=== PATIENT | male | born 1945 | race Caucasian/White ===

== ENCOUNTER 2018-10-04 17:33 | Inpatient (IN) | payer MEDICARE, BC ==
[2018-10-04] MEDS ORDERED: Sodium Chloride 0.9% 10 ML Syringe FLUSH PRN (17:52)
--- NOTE | 2018-10-04 17:54 | EDM.PDOC ---
ED HPI GENERAL MEDICAL PROBLEM - General Chief Complaint: Respiratory Problem Stated Complaint: SHAKY/COUGH Time Seen by Provider: 10/04/18 17:49 Source of Information: Reports: Patient, RN Notes Reviewed - History of Present Illness INITIAL COMMENTS - FREE TEXT/NARRATIVE: 73-year-old male with onset of cough, sore throat last evening, today and especially this afternoon his developed fever, chills, worsening cough. His cough is nonproductive. He does have some nasal and sinus congestion. He does smoke, has history of coronary artery disease with 3 stents. He has had prior pneumonia. He did not get a flu shot this year. He has had shaking chills this afternoon. He did have a dose of Tylenol about 5 hours ago. He is nauseated, he did vomit just shortly after arrival to ED. - Related Data Allergies Allergy/AdvReac Type Severity Reaction Status Date / Time No Known Allergies Allergy Verified 10/04/18 17:48 Home Meds: Home Meds Finasteride [Proscar] 5 mg PO DAILY 05/04/16 [History] Lisinopril 5 mg PO DAILY 05/04/16 [History] Simvastatin [Zocor] 10 mg PO BEDTIME 05/04/16 [History] Tamsulosin [Flomax] 0.4 mg PO DAILY 05/04/16 [History] Aspirin [Nando Chewable Aspirin] 81 mg PO DAILY 01/14/17 [History] Metoprolol Succinate 25 mg PO BID 03/24/17 [History] Past Medical History HEENT History: Reports: Impaired Vision Cardiovascular History: Reports: CAD, High Cholesterol, Hypertension Gastrointestinal History: Reports: Colon Polyp, GI Bleed, Other (See Below) Other Gastrointestinal History: Diverticulitis Genitourinary History: Reports: BPH. Denies: Chronic Renal Insuffiency Oncologic (Cancer) History: Reports: None - Past Surgical History Cardiovascular Surgical History: Reports: Coronary Artery Stent Social & Family History - Family History Family Medical History: Noncontributory - Caffeine Use Caffeine Use: Reports: Coffee Caffeine Use Comment: 3 cups avg per day ED ROS GENERAL - Review of Systems Review Of Systems: See Below Constitutional: Reports: Fever, Chills HEENT: Reports: Rhinitis, Throat Pain (Mild) Respiratory: Reports: Shortness of Breath (Mild mild), Cough, Sputum (Severe mostly nonproductive). Denies: Hemoptysis Cardiovascular: Reports: Chest Pain (With coughing) GI/Abdominal: Reports: Nausea, Vomiting. Denies: Abdominal Pain Musculoskeletal: Reports: Other (Generalized achiness). Denies: Shoulder Pain, Arm Pain Skin: Denies: Rash Neurological: Reports: Headache (Mild), Weakness (Generalized), Gait Disturbance (Unsteady on feet) ED EXAM, GENERAL - Physical Exam Exam: See Below General Appearance: Alert, Mild Distress Eye Exam: Bilateral Eye: PERRL Throat/Mouth: Normal Inspection Head: Atraumatic Neck: Supple. No: Lymphadenopathy (L), Lymphadenopathy (R) Respiratory/Chest: Respiratory Distress (Mild tachypnea). No: Rhonchi, Wheezing Cardiovascular: Tachycardia GI/Abdominal: Soft, Tender (Mild diffuse) Extremities: No: Normal Range of Motion, Leg Pain Neurological: Alert, Oriented, No Motor/Sensory Deficits Skin Exam: Warm, Dry, Normal Color EKG INTERPRETATION EKG Date: 10/04/18 Rhythm: Other (Sinus tachycardia) Rate (Beats/Min): 113 [place]: Normal P-Wave: Present QRS: Other (LAFB) ST-T: Other (Diffuse ST changes) Course - Vital Signs Last Recorded V/S: Last Vital Signs Temp 100.3 F 10/04/18 18:12 Pulse 122 H 10/04/18 17:44 Resp 20 10/04/18 17:44 BP 159/88 H 10/04/18 17:44 Pulse Ox 94 L 10/04/18 17:44 - Orders/Labs/Meds Orders: Active Orders 24 hr Category Date Time Status Peripheral IV Care [RC] . DIRECTED Care 10/04/18 17:52 Active Chest 1V Frontal [CR] Stat Exams 10/04/18 17:51 Taken CULTURE BLOOD [BC] Stat Lab 10/04/18 18:02 Received CULTURE BLOOD [BC] Stat Lab 10/04/18 18:10 Received Sodium Chloride 0.9% [Normal Saline] 1,000 ml Med 10/04/18 18:00 Active IV ONETIME Sodium Chloride 0.9% [Saline Flush] Med 10/04/18 17:52 Active 10 ml FLUSH ASDIRECTED PRN Peripheral IV Insertion Adult [OM.PC] Stat Oth 10/04/18 17:52 Ordered Medication Orders Sodium Chloride (Normal Saline) 1,000 mls @ 999 mls/hr IV ONETIME MAIKEL Last Admin: 10/04/18 18:11 Dose: 999 mls/hr Sodium Chloride (Saline Flush) 10 ml FLUSH ASDIRECTED PRN PRN Reason: Keep Vein Open Last Admin: 10/04/18 18:13 Dose: 10 ml Labs: Laboratory Tests 10/04/18 10/04/18 10/04/18 Range/Units 18:02 18:02 18:10 WBC 14.36 H (4.23-9.07) K/mm3 RBC 4.87 (4.63-6.08) M/mm3 Hgb 14.4 (13.7-17.5) gm/L Hct 43.6 (40.1-51.0) % MCV 89.5 (79.0-92.2) fl MCH 29.6 (25.7-32.2) pg MCHC 33.0 (32.2-35.5) g/dl RDW Std Deviation 43.4 (35.1-43.9) fL Plt Count 193 (163-337) K/mm3 MPV 9.5 (9.4-12.3) fl Neut % (Auto) 87.7 H (34.0-67.9) % Lymph % (Auto) 6.2 L (21.8-53.1) % [place] % (Auto) 5.3 (5.3-12.2) % Eos % (Auto) 0.4 L (0.8-7.0) Baso % (Auto) 0.2 (0.1-1.2) % Neut # (Auto) 12.59 H (1.78-5.38) K/mm3 Lymph # (Auto) 0.89 L (1.32-3.57) K/mm3 [place] # (Auto) 0.76 (0.30-0.82) K/mm3 Eos # (Auto) 0.06 (0.04-0.54) K/mm3 Baso # (Auto) 0.03 (0.01-0.08) K/mm3 Manual Slide Review Abnormal smear Sodium 136 (136-145) mEq/L Potassium 4.2 (3.5-5.1) mEq/L Chloride 102 (98-107) mEq/L Carbon Dioxide 24 (21-32) mEq/L Anion Gap 14.2 (5-15) BUN 15 (7-18) mg/dL Creatinine 0.9 (0.7-1.3) mg/dL Est Cr Clr Drug Dosing 76.69 mL/min Estimated GFR (MDRD) > 60 (>60) mL/min BUN/Creatinine Ratio 16.7 (14-18) Glucose 102 (83-115) mg/dL Lactic Acid 1.7 (0.4-2.0) mmol/L Calcium 8.9 (8.5-10.1) mg/dL Total Bilirubin 0.6 (0.2-1.0) mg/dL AST 25 (15-37) U/L ALT 23 (16-63) U/L Alkaline Phosphatase 88 (46-116) U/L C-Reactive Protein 1.5 H* (<1.0) mg/dL Total Protein 7.6 (6.4-8.2) g/dl Albumin 3.9 (3.4-5.0) g/dl Globulin 3.7 gm/dL Albumin/Globulin Ratio 1.1 (1-2) Mycoplasma pneumon IgM Negative (NEGATIVE) Meds: Medications Generic Name Dose Route Start Last Admin Trade Name Freq PRN Reason Stop Dose Admin Sodium Chloride 1,000 mls @ 999 mls/hr 10/04/18 18:00 10/04/18 18:11 Normal Saline IV 999 mls/hr ONETIME MAIKEL Administration Sodium Chloride 10 ml 10/04/18 17:52 10/04/18 18:13 Saline Flush FLUSH 10 ml ASDIRECTED PRN Administration Keep Vein Open Discontinued Medications Generic Name Dose Route Start Last Admin Trade Name Freq PRN Reason Stop Dose Admin Acetaminophen 975 mg 10/04/18 18:05 10/04/18 18:12 Tylenol PO 10/04/18 18:06 975 mg NOW ONE Administration Ceftriaxone Sodium Confirm 10/04/18 18:46 10/04/18 18:52 Rocephin Administered 10/04/18 18:47 Not Given Dose 2 gm .ROUTE .STK-MED ONE Ceftriaxone Sodium Confirm 10/04/18 18:48 10/04/18 18:52 Rocephin Administered 10/04/18 18:49 Not Given Dose 2 gm IV .STK-MED ONE Ceftriaxone Sodium 2 gm/ 100 mls @ 200 mls/hr 10/04/18 18:23 10/04/18 18:52 Sodium Chloride IV 10/04/18 18:52 200 mls/hr ONETIME ONE Administration Sodium Chloride Confirm 10/04/18 18:48 10/04/18 18:52 Normal Saline Administered 10/04/18 18:49 Not Given Dose 100 mls @ as directed .ROUTE .STK-MED ONE Ondansetron HCl 4 mg 10/04/18 18:05 10/04/18 18:12 Zofran IVPUSH 10/04/18 18:06 4 mg ONETIME ONE Administration - Re-Assessments/Exams Free Text/Narrative Re-Assessment/Exam: 10/04/18 19:06. Chest x-ray shows what looks like a small infiltrate right base. White blood count 14,300, 87 segs, only 6 lymphocytes. Influenza screen is negative. He did meet sepsis alert criteria. Blood cultures 2 were drawn. Lactic acid is 1.7. He has been given 1 L of normal saline over the past hour. Rocephin 2 g IV is running at this time. He will be admitted for further treatment. Departure - Departure Time of Disposition: 19:10 Disposition: Admitted As Inpatient 65 Condition: Serious Clinical Impression: Pneumonia Qualifiers: Pneumonia type: due to unspecified organism Laterality: right Lung location: lower lobe of lung Qualified Code(s): J18.1 - Lobar pneumonia, unspecified organism - Discharge Information Referrals: Christopher Francois MD [Primary Care Provider] - Forms: ED Department Discharge ED Communication - Discussed Case With (1) Discussed Case With (1): Admitting Provider (Dr Dorantes, decision to admit at about 19:10.) - My Orders Last 24 Hours: My Active Orders 10/04/18 17:51 Chest 1V Frontal [CR] Stat 10/04/18 17:52 Peripheral IV Care [RC] . DIRECTED Sodium Chloride 0.9% [Saline Flush] 10 ml FLUSH ASDIRECTED PRN Peripheral IV Insertion Adult [OM.PC] Stat 10/04/18 18:00 Sodium Chloride 0.9% [Normal Saline] 1,000 ml IV ONETIME 10/04/18 18:02 CULTURE BLOOD [BC] Stat 10/04/18 18:10 CULTURE BLOOD [BC] Stat - Assessment/Plan Last 24 Hours: My Active Orders 10/04/18 17:51 Chest 1V Frontal [CR] Stat 10/04/18 17:52 Peripheral IV Care [RC] . DIRECTED Sodium Chloride 0.9% [Saline Flush] 10 ml FLUSH ASDIRECTED PRN Peripheral IV Insertion Adult [OM.PC] Stat 10/04/18 18:00 Sodium Chloride 0.9% [Normal Saline] 1,000 ml IV ONETIME 10/04/18 18:02 CULTURE BLOOD [BC] Stat 10/04/18 18:10 CULTURE BLOOD [BC] Stat
[2018-10-04] MEDS ORDERED: Sodium Chloride 0.9% 1,000 ML IV SCH (18:00)
[2018-10-04] MEDS ORDERED: Ondansetron 4 MG/2 ML SDV IVPUSH ONE (18:05)
[2018-10-04] MEDS ORDERED: Acetaminophen 325 MG Tab PO ONE (18:05)
[2018-10-04] MEDS ORDERED: cefTRIAXone 2 GM in Sodium Chloride 0.9% 100 ML IV ONE (18:23)
[2018-10-04] MEDS ORDERED: cefTRIAXone 2 GM Vial ONE (18:46)
[2018-10-04] MEDS ORDERED: Sodium Chloride 0.9% 100 ML ONE (18:48)
[2018-10-04] MEDS ORDERED: cefTRIAXone 2 GM AdvVial IV ONE (18:48)
[2018-10-04] MEDS ORDERED: Azithromycin 500 MG in Sodium Chloride 0.9% 250 ML IV ONE (22:32)
[2018-10-04] MEDS ORDERED: Acetaminophen 325 MG Tab PO PRN (22:35)
[2018-10-04] MEDS ORDERED: Temazepam 7.5 MG Cap PO PRN (22:41)
[2018-10-04] MEDS ORDERED: Albuterol 0.083% 2.5 MG/3 ML Neb Soln NEB PRN (22:52)
[2018-10-04] MEDS ORDERED: Albuterol/Ipratropium 3.0-0.5 MG/3 ML Neb Soln NEB SCH (23:00)
[2018-10-04] MEDS: Sodium Chloride 0.9% 1,000 ML IV SCH (23:45)
[2018-10-05] MEDS: Albuterol/Ipratropium 3.0-0.5 MG/3 ML Neb Soln NEB SCH ×4 (06:33→20:40)
[2018-10-05] MEDS: Enoxaparin 40 MG/0.4 ML Syringe SUBCUT SCH (08:52)
[2018-10-05] MEDS: Nicotine 21 MG/24 Hr Patch TRDERM SCH (08:52)
--- NOTE | 2018-10-05 08:54 | CR ---
Chest: 2 views of the chest were obtained. Comparison: Prior portable chest x-ray of 10/04/18. Lungs are hyperinflated compatible with emphysematous change. Surgical clips are seen from prior cholecystectomy. Heart size within normal limits. Tortuous thoracic aorta is noted. Lung markings are increased which appear slightly increased from previous exam. Lungs otherwise are clear. Degenerative endplate spurring is noted within the spine. Impression: 1. Emphysematous change. 2. Increased lung markings which are more prominent than on prior study. Uncertain how much of this represents fibrosis versus worsening bronchitis. 3. Other incidental findings. Diagnostic code #3
[2018-10-05] MEDS ORDERED: cefTRIAXone 2 GM in Sodium Chloride 0.9% 100 ML IV ONE (09:00)
--- NOTE | 2018-10-05 09:25 | PCM.HP ---
H&P History of Present Illness - General Date of Service: 10/05/18 Admit Problem/Dx: Admission Diagnosis/Problem Admission Diagnosis/Problem Pneumonia Source of Information: Patient, Family, Provider - History of Present Illness Initial Comments - Free Text/Narative: 73 year old male with history of tobacco dependence presents after a course of doxycycline/prednisone, patient states that he completed the course. The patient reports fever, chills and increasingly has had a cough. He however denies sputum production. He reports nasal congestion . The patient declined the flu vaccine. The patient is a full code. Onset of Symptoms: Reports: Gradual Symptom Onset Date: 10/02/18 Duration of Symptoms: Reports: Day(s):, Getting Worse Location: Reports: Chest, Generalized Quality: Reports: Same as Previous Episode Severity: Moderate Improves with: Reports: Medication Context: Reports: Sick Contact (unknown) Associated Symptoms: Reports: Cough, Malaise, Weakness - Related Data Allergies/Adverse Reactions: Allergies Allergy/AdvReac Type Severity Reaction Status Date / Time orange juice Allergy Itching Verified 10/05/18 09:07 Home Medications: Home Meds Finasteride [Proscar] 5 mg PO DAILY 05/04/16 [History] Lisinopril 5 mg PO DAILY 05/04/16 [History] Tamsulosin [Flomax] 0.4 mg PO DAILY 05/04/16 [History] Aspirin [Nando Chewable Aspirin] 81 mg PO DAILY 01/14/17 [History] ALPRAZolam [Xanax] 0.25 mg PO DAILY PRN 10/04/18 [History] Benzonatate [Tessalon Perle] 200 mg PO TID 10/04/18 [History] Clopidogrel [Plavix] 75 mg PO DAILY 10/04/18 [History] Isosorbide Mononitrate [Imdur] 30 mg PO DAILY 10/04/18 [History] Metoprolol Tartrate 25 mg PO BID 10/04/18 [History] Rosuvastatin [Crestor] 20 mg PO DAILY 10/04/18 [History] amLODIPine Besylate [Norvasc] 2.5 mg PO DAILY 10/04/18 [History] Past Medical History HEENT History: Reports: Impaired Vision, Other (See Below) Other HEENT History: we3ars glasses Cardiovascular History: Reports: CAD, High Cholesterol, Hypertension Gastrointestinal History: Reports: Colon Polyp, GI Bleed, Other (See Below) Other Gastrointestinal History: Diverticulitis Genitourinary History: Reports: BPH Oncologic (Cancer) History: Reports: None - Past Surgical History HEENT Surgical History: Reports: None Cardiovascular Surgical History: Reports: Coronary Artery Stent GI Surgical History: Reports: None Male Surgical History: Reports: None Social & Family History - Family History Family Medical History: Noncontributory - Tobacco Use Smoking Status *Q: Current Every Day Smoker Years of Tobacco use: 50 Packs/Tins Daily: 1 Used Tobacco, but Quit: No Second Hand Smoke Exposure: No - Caffeine Use Caffeine Use: Reports: Coffee Other Caffeine Use: 5 cups of coffee everyday. Caffeine Use Comment: 3 cups avg per day - Recreational Drug Use Recreational Drug Use: No H&P Review of Systems - Review of Systems: Review Of Systems: See Below General: Reports: Malaise, Weakness HEENT: Reports: Sore Throat Pulmonary: Reports: Shortness of Breath, Wheezing, Cough Cardiovascular: Reports: No Symptoms Gastrointestinal: Reports: No Symptoms Genitourinary: Reports: No Symptoms Musculoskeletal: Reports: No Symptoms Skin: Reports: No Symptoms Psychiatric: Reports: No Symptoms Neurological: Reports: No Symptoms Hematologic/Lymphatic: Reports: No Symptoms Immunologic: Reports: No Symptoms Exam - Exam Exam: See Below - Vital Signs Vital Signs: Last Vital Signs Temp 36.6 C 10/05/18 04:50 Pulse 54 L 10/05/18 04:50 Resp 14 10/05/18 04:50 BP 137/71 10/05/18 04:50 Pulse Ox 98 10/05/18 06:36 Weight: 76.249 kg - Exam Quality Assessment: Supplemental Oxygen (1l/m) General: Alert, Oriented, Cooperative HEENT: Conjunctiva Clear, EOMI, Nares Patent, Normal Nasal Septum, Pupils Equal , Pupils Reactive, PERRLA Neck: Trachea Midline Lungs: Normal Respiratory Effort, Decreased Breath Sounds, Wheezing Cardiovascular: Regular Rate, Regular Rhythm GI/Abdominal Exam: Normal Bowel Sounds, Soft, Non-Tender, No Organomegaly, No Distention (Male) Exam: Deferred Rectal (Males) Exam: Deferred Back Exam: Normal Inspection Extremities: Normal Inspection, Normal Range of Motion, Non-Tender, Normal Capillary Refill Skin: Warm Neurological: Cranial Nerves Intact, Normal Gait, Normal Speech Neuro Extensive - Mental Status: Alert, Oriented x3, Normal Mood/Affect, Normal Cognition, Memory Intact Neuro Extensive - Motor, Sensory, Reflexes: CN II-XII Intact Psychiatric: Alert, Normal Affect, Normal Mood - Patient Data Lab Results Last 24 hrs: Laboratory Results - last 24 hr 10/04/18 10/04/18 10/04/18 Range/Units 18:02 18:02 18:10 WBC 14.36 H (4.23-9.07) K/mm3 RBC 4.87 (4.63-6.08) M/mm3 Hgb 14.4 (13.7-17.5) gm/L Hct 43.6 (40.1-51.0) % MCV 89.5 (79.0-92.2) fl MCH 29.6 (25.7-32.2) pg MCHC 33.0 (32.2-35.5) g/dl RDW Std Deviation 43.4 (35.1-43.9) fL Plt Count 193 (163-337) K/mm3 MPV 9.5 (9.4-12.3) fl Neut % (Auto) 87.7 H (34.0-67.9) % Lymph % (Auto) 6.2 L (21.8-53.1) % [place] % (Auto) 5.3 (5.3-12.2) % Eos % (Auto) 0.4 L (0.8-7.0) Baso % (Auto) 0.2 (0.1-1.2) % Neut # (Auto) 12.59 H (1.78-5.38) K/mm3 Lymph # (Auto) 0.89 L (1.32-3.57) K/mm3 [place] # (Auto) 0.76 (0.30-0.82) K/mm3 Eos # (Auto) 0.06 (0.04-0.54) K/mm3 Baso # (Auto) 0.03 (0.01-0.08) K/mm3 Neutrophils % (Manual) (40-60) % Band Neutrophils % (0-10) % Lymphocytes % (Manual) (20-40) % Atypical Lymphs % % Monocytes % (Manual) (2-10) % Eosinophils % (Manual) (0.8-7.0) % Basophils % (Manual) (0.2-1.2) Manual Slide Review Abnormal smear Platelet Estimate RBC Morph Comment Sodium 136 (136-145) mEq/L Potassium 4.2 (3.5-5.1) mEq/L Chloride 102 (98-107) mEq/L Carbon Dioxide 24 (21-32) mEq/L Anion Gap 14.2 (5-15) BUN 15 (7-18) mg/dL Creatinine 0.9 (0.7-1.3) mg/dL Est Cr Clr Drug Dosing 76.69 mL/min Estimated GFR (MDRD) > 60 (>60) mL/min BUN/Creatinine Ratio 16.7 (14-18) Glucose 102 (83-115) mg/dL Lactic Acid 1.7 (0.4-2.0) mmol/L Calcium 8.9 (8.5-10.1) mg/dL Magnesium (1.8-2.4) mg/dl Total Bilirubin 0.6 (0.2-1.0) mg/dL AST 25 (15-37) U/L ALT 23 (16-63) U/L Alkaline Phosphatase 88 (46-116) U/L C-Reactive Protein 1.5 H* (<1.0) mg/dL Total Protein 7.6 (6.4-8.2) g/dl Albumin 3.9 (3.4-5.0) g/dl Globulin 3.7 gm/dL Albumin/Globulin Ratio 1.1 (1-2) Mycoplasma pneumon IgM Negative (NEGATIVE) 10/05/18 10/05/18 10/05/18 Range/Units 05:11 05:11 05:11 WBC 14.73 H (4.23-9.07) K/mm3 RBC 4.34 L (4.63-6.08) M/mm3 Hgb 12.6 L (13.7-17.5) gm/L Hct 39.3 L (40.1-51.0) % MCV 90.6 (79.0-92.2) fl MCH 29.0 (25.7-32.2) pg MCHC 32.1 L (32.2-35.5) g/dl RDW Std Deviation 44.8 H (35.1-43.9) fL Plt Count 170 (163-337) K/mm3 MPV 9.7 (9.4-12.3) fl Neut % (Auto) (34.0-67.9) % Lymph % (Auto) (21.8-53.1) % [place] % (Auto) (5.3-12.2) % Eos % (Auto) (0.8-7.0) Baso % (Auto) (0.1-1.2) % Neut # (Auto) (1.78-5.38) K/mm3 Lymph # (Auto) (1.32-3.57) K/mm3 [place] # (Auto) (0.30-0.82) K/mm3 Eos # (Auto) (0.04-0.54) K/mm3 Baso # (Auto) (0.01-0.08) K/mm3 Neutrophils % (Manual) 78 H (40-60) % Band Neutrophils % 6 (0-10) % Lymphocytes % (Manual) 12 L (20-40) % Atypical Lymphs % 0 % Monocytes % (Manual) 4 (2-10) % Eosinophils % (Manual) 0 L (0.8-7.0) % Basophils % (Manual) 0 L (0.2-1.2) Manual Slide Review Platelet Estimate Adequate RBC Morph Comment Normal Sodium 140 (136-145) mEq/L Potassium 4.4 (3.5-5.1) mEq/L Chloride 105 (98-107) mEq/L Carbon Dioxide 27 (21-32) mEq/L Anion Gap 12.4 (5-15) BUN 15 (7-18) mg/dL Creatinine 1.0 (0.7-1.3) mg/dL Est Cr Clr Drug Dosing 69.03 mL/min Estimated GFR (MDRD) > 60 (>60) mL/min BUN/Creatinine Ratio 15.0 (14-18) Glucose 94 (83-115) mg/dL Lactic Acid 0.9 (0.4-2.0) mmol/L Calcium 8.3 L (8.5-10.1) mg/dL Magnesium 2.0 (1.8-2.4) mg/dl Total Bilirubin (0.2-1.0) mg/dL AST (15-37) U/L ALT (16-63) U/L Alkaline Phosphatase (46-116) U/L C-Reactive Protein 4.7 H* (<1.0) mg/dL Total Protein (6.4-8.2) g/dl Albumin (3.4-5.0) g/dl Globulin gm/dL Albumin/Globulin Ratio (1-2) Mycoplasma pneumon IgM (NEGATIVE) Result Diagrams: 10/05/18 05:11 10/05/18 05:11 Romaine Results Last 24 hrs: Microbiology 10/04/18 18:05 Influenza Type A Antigen Screen - Final Nasopharyngeal Swab NEGATIVE INFLUENZA A VIRUS AG Influenza Type B Antigen Screen - Final NEGATIVE INFLUENZA B VIRUS AG - Problem List (1) CAD (coronary artery disease) SNOMED Code(s): 51204615 ICD Code: I25.10 - ATHSCL HEART DISEASE OF [place] CORONARY ARTERY W/O ANG PCTRS Status: Acute Current Visit: Yes (2) Hyperlipidemia SNOMED Code(s): 28304530 ICD Code: E78.5 - HYPERLIPIDEMIA, UNSPECIFIED Status: Acute Current Visit : Yes (3) Hypertension SNOMED Code(s): 23620098 ICD Code: I10 - ESSENTIAL (PRIMARY) HYPERTENSION Status: Acute Current Visit: Yes (4) Chronic kidney disease SNOMED Code(s): 771437256 ICD Code: N18.9 - CHRONIC KIDNEY DISEASE, UNSPECIFIED Status: Acute Current Visit: Yes (5) Emphysema lung SNOMED Code(s): 77214024 ICD Code: J43.9 - EMPHYSEMA, UNSPECIFIED Status: Acute Current Visit: Yes (6) Pneumonia SNOMED Code(s): 799510619 ICD Code: J18.9 - PNEUMONIA, UNSPECIFIED ORGANISM Status: Acute Current Visit: Yes Qualifiers: Pneumonia type: due to unspecified organism Laterality: right Lung location: lower lobe of lung Qualified Code(s): J18.1 - Lobar pneumonia, unspecified organism Problem List Initiated/Reviewed/Updated: Yes Orders Last 24hrs: Active Orders 24 hr Category Date Time Status Patient Status [ADT] Routine ADT 10/04/18 20:41 Active Oxygen Therapy Adult [Oxygen Therapy] [RC] ASDIRECTED Care 10/04/18 22:49 Active Peripheral IV Care [RC] . DIRECTED Care 10/04/18 17:52 Active RT Aerosol Therapy [RC] ASDIRECTED Care 10/04/18 22:52 Active RT Incentive Spirometry [RC] Q2HWA Care 10/05/18 06:39 Active Up ad Jen [RC] ASDIRECTED Care 10/04/18 22:46 Active Heart Healthy Diet [DIET] Diet 10/05/18 Breakfast Active Chest 1V Frontal [CR] Stat Exams 10/04/18 17:51 Taken CULTURE BLOOD [BC] Stat Lab 10/04/18 18:02 Received CULTURE BLOOD [BC] Stat Lab 10/04/18 18:10 Received Acetaminophen [Tylenol] Med 10/04/18 22:35 Active 650 mg PO Q6H PRN Albuterol [Proventil Neb Soln] Med 10/04/18 22:52 Active 2.5 mg NEB Q4HRRT PRN Albuterol/Ipratropium [DuoNeb 3.0-0.5 MG/3 ML] Med 10/05/18 06:00 Active 3 ml NEB QIDRT Enoxaparin [Lovenox] Med 10/05/18 09:00 Active 40 mg SUBCUT DAILY Nicotine [Habitrol] Med 10/05/18 09:00 Active 21 mg TRDERM DAILY Sodium Chloride 0.9% [Normal Saline] 1,000 ml Med 10/04/18 22:45 Active IV ASDIRECTED Sodium Chloride 0.9% [Normal Saline] 1,000 ml Med 10/04/18 18:00 Active IV ONETIME Sodium Chloride 0.9% [Saline Flush] Med 10/04/18 17:52 Active 10 ml FLUSH ASDIRECTED PRN Temazepam [Restoril] Med 10/04/18 22:41 Active 7.5 mg PO BEDTIME PRN cefTRIAXone [Rocephin] 2 gm Med 10/05/18 09:00 Active Sodium Chloride 0.9% [Normal Saline] 100 ml IV Q24H Peripheral IV Insertion Adult [OM.PC] Stat Oth 10/04/18 17:52 Ordered Code Status [Resuscitation Status] Routine Resus Stat 10/04/18 22:30 Ordered Medication Orders Acetaminophen (Tylenol) 650 mg PO Q6H PRN PRN Reason: Pain/Fever Albuterol (Proventil Neb Soln) 2.5 mg NEB Q4HRRT PRN PRN Reason: Shortness of Breath Albuterol/Ipratropium (Duoneb 3.0-0.5 Mg/3 Ml) 3 ml NEB QIDRT MAIKEL Last Admin: 10/05/18 09:10 Dose: 3 ml Admin: 10/05/18 06:33 Dose: 3 ml Enoxaparin Sodium (Lovenox) 40 mg SUBCUT DAILY ON LICENSE OF [facility] Last Admin: 10/05/18 08:52 Dose: 40 mg Sodium Chloride (Normal Saline) 1,000 mls @ 999 mls/hr IV ONETIME ON LICENSE OF [facility] Last Admin: 10/04/18 18:11 Dose: 999 mls/hr Ceftriaxone Sodium 2 gm/ (Sodium Chloride) 100 mls @ 200 mls/hr IV Q24H ONE Stop: 10/05/18 09:29 Last Admin: 10/05/18 08:51 Dose: 200 mls/hr Sodium Chloride (Normal Saline) 1,000 mls @ 100 mls/hr IV ASDIRECTED MAIKEL Last Admin: 10/04/18 23:45 Dose: 100 mls/hr Nicotine (Habitrol) 21 mg TRDERM DAILY ON LICENSE OF [facility] Last Admin: 10/05/18 08:52 Dose: 21 mg Sodium Chloride (Saline Flush) 10 ml FLUSH ASDIRECTED PRN PRN Reason: Keep Vein Open Last Admin: 10/04/18 18:13 Dose: 10 ml Temazepam (Restoril) 7.5 mg PO BEDTIME PRN PRN Reason: Sleep Assessment/Plan Comment:: Impression: Outpatient ATB, doxycycline with prednisone failed therapy Active tobacco use Emphysema, query bronchitis cf PNA Hypoxemia Chronic BPH CAD S/P PCI HTN HLD Plan: IVF Zithromax/Rocephin Solumedrol O2 1-2 l/m as needed Droplet isolation Home meds Nicotine replacement/tobacco cessation Daily labs PT/OT/RT/CM DVT/GI prophylaxis
[2018-10-05] MEDS: Sodium Chloride 0.9% 1,000 ML IV SCH (09:31)
[2018-10-05] MEDS ORDERED: ALPRAZolam 0.25 MG Tab PO PRN (10:20)
[2018-10-05] MEDS: methylPREDNISolone Sodium Succinate 125 MG/2 ML SDV IVPUSH SCH ×2 (11:29→18:02)
[2018-10-05] MEDS ORDERED: diphenhydrAMINE 50 MG/ML SDV IVPUSH ONE (11:39)
--- NOTE | 2018-10-05 13:07 | CR ---
Chest: Portable view of the chest was obtained. Comparison: Prior chest x-ray of 06/09/11. Heart size is normal. Tortuous thoracic aorta is seen. Lungs are clear. Previous resection of both clavicles are noted. Impression: 1. Nothing acute is seen on portable chest x-ray. Diagnostic code #1
[2018-10-05] MEDS: Azithromycin 500 MG in Sodium Chloride 0.9% 250 ML IV SCH (16:49)
[2018-10-05] MEDS: Benzonatate 100 MG Cap PO SCH ×2 (16:49→21:34)
[2018-10-05] MEDS: Metoprolol Tartrate 25 MG Tab PO SCH (21:34)
[2018-10-06] MEDS: methylPREDNISolone Sodium Succinate 125 MG/2 ML SDV IVPUSH SCH ×2 (04:53→11:32)
[2018-10-06] MEDS: Sodium Chloride 0.9% 1,000 ML IV SCH ×2 (04:59→15:36)
[2018-10-06] MEDS: Albuterol/Ipratropium 3.0-0.5 MG/3 ML Neb Soln NEB SCH (06:15)
[2018-10-06] MEDS ORDERED: Metoprolol Tartrate 5 MG/5 ML SDV ONE (06:39)
[2018-10-06] MEDS ORDERED: Metoprolol Tartrate 5 MG/5 ML SDV IVPUSH ONE (06:40)
[2018-10-06] MEDS ORDERED: Metoprolol Tartrate 5 MG/5 ML SDV IVPUSH PRN (06:42)
[2018-10-06] MEDS: amLODIPine 2.5 MG Tab PO SCH (08:50)
[2018-10-06] MEDS: Rosuvastatin 10 MG Tab PO SCH (08:50)
[2018-10-06] MEDS: Isosorbide Mononitrate 30 MG Tab.ER PO SCH (08:50)
[2018-10-06] MEDS: Metoprolol Tartrate 25 MG Tab PO SCH ×2 (08:51→21:10)
[2018-10-06] MEDS: Clopidogrel 75 MG Tab PO SCH (08:51)
[2018-10-06] MEDS: Finasteride 5 MG Tab PO SCH (08:51)
[2018-10-06] MEDS: Tamsulosin 0.4 MG Cap.ER PO SCH (08:51)
[2018-10-06] MEDS: Nicotine 21 MG/24 Hr Patch TRDERM SCH (08:51)
[2018-10-06] MEDS: Benzonatate 100 MG Cap PO SCH ×3 (08:51→21:11)
[2018-10-06] MEDS: Aspirin 81 MG Tab.EC PO SCH (08:51)
[2018-10-06] MEDS: cefTRIAXone 2 GM in Sodium Chloride 0.9% 100 ML IV SCH (08:52)
[2018-10-06] MEDS: Enoxaparin 40 MG/0.4 ML Syringe SUBCUT SCH (08:53)
[2018-10-06] MEDS: hydrALAZINE 20 MG/ML SDV IVPUSH PRN (09:44)
[2018-10-06] MEDS ORDERED: Levalbuterol HCl 1.25 MG/3 ML Neb NEB SCH (10:00)
[2018-10-06] MEDS: Azithromycin 500 MG in Sodium Chloride 0.9% 250 ML IV SCH (15:30)
[2018-10-06] MEDS ORDERED: Levalbuterol HCl 1.25 MG/3 ML Neb NEB PRN (15:50)
--- NOTE | 2018-10-06 17:50 | PCM.PN ---
- General Info Date of Service: 10/06/18 Subjective Update: Patient complained of CP after NEBs, will DC; ACS work up with CAD/PCI history. Functional Status: Reports: Pain Controlled, Tolerating Diet, Ambulating, Urinating - Review of Systems General: Reports: No Symptoms HEENT: Reports: No Symptoms Pulmonary: Reports: No Symptoms Cardiovascular: Reports: Chest Pain Gastrointestinal: Reports: No Symptoms Genitourinary: Reports: No Symptoms Musculoskeletal: Reports: No Symptoms Skin: Reports: No Symptoms Neurological: Reports: No Symptoms Psychiatric: Reports: No Symptoms - Patient Data Vitals - Most Recent: Last Vital Signs Temp 36.8 C 10/06/18 16:00 Pulse 73 10/06/18 16:00 Resp 16 10/06/18 16:00 BP 131/82 10/06/18 16:00 Pulse Ox 94 L 10/06/18 16:00 Weight - Most Recent: 78.063 kg I&O - Last 24 Hours: Intake & Output 10/06/18 10/06/18 10/06/18 06:59 14:59 22:59 Intake Total 2192 360 Output Total 1650 Balance 542 360 Lab Results Last 24 Hours: Laboratory Results - last 24 hr 10/06/18 10/06/18 10/06/18 Range/Units 06:15 06:35 06:35 WBC 12.55 H (4.23-9.07) K/mm3 RBC 4.48 L (4.63-6.08) M/mm3 Hgb 13.1 L (13.7-17.5) gm/L Hct 40.1 (40.1-51.0) % MCV 89.5 (79.0-92.2) fl MCH 29.2 (25.7-32.2) pg MCHC 32.7 (32.2-35.5) g/dl RDW Std Deviation 43.7 (35.1-43.9) fL Plt Count 183 (163-337) K/mm3 MPV 9.7 (9.4-12.3) fl Neut % (Auto) 92.6 H (34.0-67.9) % Lymph % (Auto) 5.9 L (21.8-53.1) % [place] % (Auto) 1.4 L (5.3-12.2) % Eos % (Auto) 0 L (0.8-7.0) Baso % (Auto) 0.0 L (0.1-1.2) % Neut # (Auto) 11.62 H (1.78-5.38) K/mm3 Lymph # (Auto) 0.74 L (1.32-3.57) K/mm3 [place] # (Auto) 0.18 L (0.30-0.82) K/mm3 Eos # (Auto) 0.00 L (0.04-0.54) K/mm3 Baso # (Auto) 0.00 L (0.01-0.08) K/mm3 Manual Slide Review Normal smear Sodium 140 (136-145) mEq/L Potassium 3.7 (3.5-5.1) mEq/L Chloride 105 (98-107) mEq/L Carbon Dioxide 23 (21-32) mEq/L Anion Gap 15.7 H (5-15) BUN 13 (7-18) mg/dL Creatinine 0.9 (0.7-1.3) mg/dL Est Cr Clr Drug Dosing 76.69 mL/min Estimated GFR (MDRD) > 60 (>60) mL/min BUN/Creatinine Ratio 14.4 (14-18) Glucose 156 H (83-115) mg/dL Calcium 8.8 (8.5-10.1) mg/dL Magnesium 2.0 (1.8-2.4) mg/dl CK-MB (CK-2) (0-3.6) ng/ml Troponin I 0.147 H* (0.00-0.056) ng/mL C-Reactive Protein 6.5 H* (<1.0) mg/dL 10/06/18 Range/Units 09:55 WBC (4.23-9.07) K/mm3 RBC (4.63-6.08) M/mm3 Hgb (13.7-17.5) gm/L Hct (40.1-51.0) % MCV (79.0-92.2) fl MCH (25.7-32.2) pg MCHC (32.2-35.5) g/dl RDW Std Deviation (35.1-43.9) fL Plt Count (163-337) K/mm3 MPV (9.4-12.3) fl Neut % (Auto) (34.0-67.9) % Lymph % (Auto) (21.8-53.1) % [place] % (Auto) (5.3-12.2) % Eos % (Auto) (0.8-7.0) Baso % (Auto) (0.1-1.2) % Neut # (Auto) (1.78-5.38) K/mm3 Lymph # (Auto) (1.32-3.57) K/mm3 [place] # (Auto) (0.30-0.82) K/mm3 Eos # (Auto) (0.04-0.54) K/mm3 Baso # (Auto) (0.01-0.08) K/mm3 Manual Slide Review Sodium (136-145) mEq/L Potassium (3.5-5.1) mEq/L Chloride (98-107) mEq/L Carbon Dioxide (21-32) mEq/L Anion Gap (5-15) BUN (7-18) mg/dL Creatinine (0.7-1.3) mg/dL Est Cr Clr Drug Dosing mL/min Estimated GFR (MDRD) (>60) mL/min BUN/Creatinine Ratio (14-18) Glucose (83-115) mg/dL Calcium (8.5-10.1) mg/dL Magnesium (1.8-2.4) mg/dl CK-MB (CK-2) 2.0 (0-3.6) ng/ml Troponin I 0.101 H* (0.00-0.056) ng/mL C-Reactive Protein (<1.0) mg/dL [facility]aine Results Last 24 Hours: Microbiology 10/05/18 18:00 Quick Strep Confirmation Culture - Preliminary Throat Group A Streptococcus Rapid Screen - Final NEGATIVE STREP A SCREEN 10/05/18 18:10 Gram Stain - Final Sputum - Expectorated Sputum Culture - Final 10/04/18 18:10 Aerobic Blood Culture - Preliminary Blood NO GROWTH AFTER 1 DAY Anaerobic Blood Culture - Preliminary NO GROWTH AFTER 1 DAY 10/04/18 18:02 Aerobic Blood Culture - Preliminary Blood NO GROWTH AFTER 1 DAY Anaerobic Blood Culture - Preliminary NO GROWTH AFTER 1 DAY Med Orders - Current: Current Medications Acetaminophen (Tylenol) 650 mg PO Q6H PRN PRN Reason: Pain/Fever Alprazolam (Xanax) 0.25 mg PO DAILY PRN PRN Reason: Anxiety Amlodipine Besylate (Norvasc) 2.5 mg PO DAILY [facility] Last Admin: 10/06/18 08:50 Dose: 2.5 mg Aspirin (Halfprin) 81 mg PO DAILY [facility] Last Admin: 10/06/18 08:51 Dose: 81 mg Benzonatate (Tessalon Perles) 200 mg PO TID [facility] Last Admin: 10/06/18 15:30 Dose: 200 mg Clopidogrel Bisulfate (Plavix) 75 mg PO DAILY [facility] Last Admin: 10/06/18 08:51 Dose: 75 mg Enoxaparin Sodium (Lovenox) 40 mg SUBCUT DAILY [facility] Last Admin: 10/06/18 08:53 Dose: 40 mg Finasteride (Proscar) 5 mg PO DAILY [facility] Last Admin: 10/06/18 08:51 Dose: 5 mg Hydralazine HCl (Apresoline) 10 mg IVPUSH Q6H PRN PRN Reason: Hypertension Last Admin: 10/06/18 09:44 Dose: 10 mg Sodium Chloride (Normal Saline) 1,000 mls @ 100 mls/hr IV ASDIRECTED [facility] Last Admin: 10/06/18 15:36 Dose: 100 mls/hr Azithromycin 500 mg/ Sodium (Chloride) 250 mls @ 250 mls/hr IV Q24H [facility] Last Admin: 10/06/18 15:30 Dose: 250 mls/hr Ceftriaxone Sodium 2 gm/ (Sodium Chloride) 100 mls @ 200 mls/hr IV Q24H [facility] Last Admin: 10/06/18 08:52 Dose: 200 mls/hr Isosorbide Mononitrate (Imdur) 30 mg PO DAILY [facility] Last Admin: 10/06/18 08:50 Dose: 30 mg Levalbuterol HCl (Xopenex) 1.25 mg NEB Q6HRRT PRN PRN Reason: hypoxia/ SOB Methylprednisolone Sodium Succinate (Solu-Medrol) 125 mg IVPUSH Q8H [facility] Last Admin: 10/06/18 11:32 Dose: 125 mg Metoprolol Tartrate (Lopressor) 25 mg PO BID [facility] Last Admin: 10/06/18 08:51 Dose: 25 mg Metoprolol Tartrate (Lopressor) 5 mg IVPUSH Q4H PRN PRN Reason: Tachycardia Nicotine (Habitrol) 21 mg TRDERM DAILY [facility] Last Admin: 10/06/18 08:51 Dose: 21 mg Rosuvastatin Calcium (Crestor) 20 mg PO DAILY [facility] Last Admin: 10/06/18 08:50 Dose: 20 mg Sodium Chloride (Saline Flush) 10 ml FLUSH ASDIRECTED PRN PRN Reason: Keep Vein Open Last Admin: 10/04/18 18:13 Dose: 10 ml Tamsulosin HCl (Flomax) 0.4 mg PO DAILY [facility] Last Admin: 10/06/18 08:51 Dose: 0.4 mg Temazepam (Restoril) 7.5 mg PO BEDTIME PRN PRN Reason: Sleep Discontinued Medications Acetaminophen (Tylenol) 975 mg PO NOW ONE Stop: 10/04/18 18:06 Last Admin: 10/04/18 18:12 Dose: 975 mg Albuterol (Proventil Neb Soln) 2.5 mg NEB Q4HRRT PRN PRN Reason: Shortness of Breath Albuterol/Ipratropium (Duoneb 3.0-0.5 Mg/3 Ml) 3 ml NEB Q4HRRT [facility] Last Admin: 10/04/18 23:05 Dose: 3 ml Albuterol/Ipratropium (Duoneb 3.0-0.5 Mg/3 Ml) 3 ml NEB QIDRT [facility] Last Admin: 10/06/18 06:15 Dose: 3 ml Ceftriaxone Sodium (Rocephin) Confirm Administered Dose 2 gm .ROUTE .STK-MED ONE Stop: 10/04/18 18:47 Last Admin: 10/04/18 18:52 Dose: Not Given Ceftriaxone Sodium (Rocephin) Confirm Administered Dose 2 gm IV .STK-MED ONE Stop: 10/04/18 18:49 Last Admin: 10/04/18 18:52 Dose: Not Given Diphenhydramine HCl (Benadryl) 50 mg IVPUSH ONETIME ONE Stop: 10/05/18 11:40 Last Admin: 10/05/18 14:54 Dose: Not Given Sodium Chloride (Normal Saline) 1,000 mls @ 999 mls/hr IV ONETIME [facility] Last Admin: 10/04/18 18:11 Dose: 999 mls/hr Ceftriaxone Sodium 2 gm/ (Sodium Chloride) 100 mls @ 200 mls/hr IV ONETIME ONE Stop: 10/04/18 18:52 Last Admin: 10/04/18 18:52 Dose: 200 mls/hr Sodium Chloride (Normal Saline) Confirm Administered Dose 100 mls @ as directed .ROUTE .STK-MED ONE Stop: 10/04/18 18:49 Last Admin: 10/04/18 18:52 Dose: Not Given Azithromycin 500 mg/ Sodium (Chloride) 250 mls @ 250 mls/hr IV ONETIME ONE Stop: 10/04/18 23:31 Last Admin: 10/04/18 23:46 Dose: 250 mls/hr Ceftriaxone Sodium 2 gm/ (Sodium Chloride) 100 mls @ 200 mls/hr IV Q24H ONE Stop: 10/05/18 09:29 Last Admin: 10/05/18 08:51 Dose: 200 mls/hr Levalbuterol HCl (Xopenex) 1.25 mg NEB QIDRT [facility] Last Admin: 10/06/18 09:02 Dose: 1.25 mg Metoprolol Tartrate (Lopressor) Confirm Administered Dose 5 mg .ROUTE .STK-MED ONE Stop: 10/06/18 06:40 Last Admin: 10/06/18 06:58 Dose: Not Given Metoprolol Tartrate (Lopressor) 5 mg IVPUSH ONETIME ONE Stop: 10/06/18 06:41 Last Admin: 10/06/18 06:45 Dose: 5 mg Ondansetron HCl (Zofran) 4 mg IVPUSH ONETIME ONE Stop: 10/04/18 18:06 Last Admin: 10/04/18 18:12 Dose: 4 mg - Exam Quality Assessment: Supplemental Oxygen, DVT Prophylaxis General: Alert, Oriented, Cooperative, No Acute Distress HEENT: Pupils Equal, Pupils Reactive, EOMI Neck: Trachea Midline, No JVD Lungs: Normal Respiratory Effort Cardiovascular: Regular Rate, Regular Rhythm, Other (runs of VT after Neb) GI/Abdominal Exam: Normal Bowel Sounds, Soft, Non-Tender, No Organomegaly, No Distention (Male) Exam: Deferred Back Exam: Normal Inspection Extremities: Normal Inspection, Non-Tender, Normal Capillary Refill Skin: Warm Neurological: No New Focal Deficit Psy/Mental Status: Alert, Normal Affect, Normal Mood - Problem List & Annotations (1) CAD (coronary artery disease) SNOMED Code(s): 44658298 Code(s): I25.10 - ATHSCL HEART DISEASE OF [place] CORONARY ARTERY W/O ANG PCTRS Status: Acute Current Visit: Yes (2) Hyperlipidemia SNOMED Code(s): 56292348 Code(s): E78.5 - HYPERLIPIDEMIA, UNSPECIFIED Status: Acute Current Visit : Yes (3) Hypertension SNOMED Code(s): 37390518 Code(s): I10 - ESSENTIAL (PRIMARY) HYPERTENSION Status: Acute Current Visit: Yes (4) Chronic kidney disease SNOMED Code(s): 687924668 Code(s): N18.9 - CHRONIC KIDNEY DISEASE, UNSPECIFIED Status: Acute Current Visit: Yes (5) Emphysema lung SNOMED Code(s): 49551939 Code(s): J43.9 - EMPHYSEMA, UNSPECIFIED Status: Acute Current Visit: Yes (6) Pneumonia SNOMED Code(s): 030241562 Code(s): J18.9 - PNEUMONIA, UNSPECIFIED ORGANISM Status: Acute Current Visit: Yes Qualifiers: Pneumonia type: due to unspecified organism Laterality: right Lung location: lower lobe of lung Qualified Code(s): J18.1 - Lobar pneumonia, unspecified organism - Problem List Review Problem List Initiated/Reviewed/Updated: Yes - My Orders Last 24 Hours: My Active Orders 10/05/18 18:00 CULTURE STREP A CONFIRMATION [] Routine STREP SCRN A RAPID W CULT CONF [] Routine 10/05/18 21:00 Metoprolol Tartrate [Lopressor] 25 mg PO BID 10/06/18 09:00 Aspirin [Halfprin] 81 mg PO DAILY Clopidogrel [Plavix] 75 mg PO DAILY Finasteride [Proscar] 5 mg PO DAILY Isosorbide Mononitrate [Imdur] 30 mg PO DAILY Rosuvastatin [Crestor] 20 mg PO DAILY Tamsulosin [Flomax] 0.4 mg PO DAILY amLODIPine [Norvasc] 2.5 mg PO DAILY cefTRIAXone [Rocephin] 2 gm Sodium Chloride 0.9% [Normal Saline] 100 ml IV Q24H 10/06/18 15:50 Levalbuterol HCl [Xopenex] 1.25 mg NEB Q6HRRT PRN 10/07/18 05:00 BMP [BASIC METABOLIC PANEL,BMP] [CHEM] DAILY CBC WITH AUTO DIFF [HEME] DAILY CRP [C-REACTIVE PROTEIN] [CHEM] DAILY MAGNESIUM [CHEM] DAILY 10/08/18 05:00 BMP [BASIC METABOLIC PANEL,BMP] [CHEM] DAILY CBC WITH AUTO DIFF [HEME] DAILY CRP [C-REACTIVE PROTEIN] [CHEM] DAILY MAGNESIUM [CHEM] DAILY 10/09/18 05:00 BMP [BASIC METABOLIC PANEL,BMP] [CHEM] DAILY CBC WITH AUTO DIFF [HEME] DAILY CRP [C-REACTIVE PROTEIN] [CHEM] DAILY MAGNESIUM [CHEM] DAILY - Plan Plan:: Impression: Outpatient ATB, doxycycline with prednisone failed therapy Active tobacco use Emphysema, query bronchitis cf PNA Hypoxemia Chest pain post NEB, CP work up initiated Chronic BPH CAD S/P PCI HTN HLD Plan: IVF Troponins Nitrates as needed Early Card follow with Dr Dudley Zithromax/Rocsophyhiveronica Solumedrol O2 1-2 l/m as needed Droplet isolation Home meds Nicotine replacement/tobacco cessation Daily labs PT/OT/RT/CM DVT/GI prophylaxis
[2018-10-06] MEDS ORDERED: methylPREDNISolone Sodium Succinate 125 MG/2 ML SDV IVPUSH SCH (18:00)
[2018-10-07] MEDS: Sodium Chloride 0.9% 1,000 ML IV SCH (01:23)
[2018-10-07] MEDS: predniSONE 20 MG Tab PO SCH (06:09)
[2018-10-07] MEDS: Benzonatate 100 MG Cap PO SCH ×3 (08:18→21:52)
[2018-10-07] MEDS: amLODIPine 2.5 MG Tab PO SCH (08:19)
[2018-10-07] MEDS: Rosuvastatin 10 MG Tab PO SCH (08:19)
[2018-10-07] MEDS: Tamsulosin 0.4 MG Cap.ER PO SCH (08:19)
[2018-10-07] MEDS: Aspirin 81 MG Tab.EC PO SCH (08:19)
[2018-10-07] MEDS: Clopidogrel 75 MG Tab PO SCH (08:19)
[2018-10-07] MEDS: Isosorbide Mononitrate 30 MG Tab.ER PO SCH (08:19)
[2018-10-07] MEDS: Finasteride 5 MG Tab PO SCH (08:19)
[2018-10-07] MEDS: Metoprolol Tartrate 25 MG Tab PO SCH ×2 (08:20→21:30)
[2018-10-07] MEDS: Nicotine 21 MG/24 Hr Patch TRDERM SCH (08:22)
[2018-10-07] MEDS: Enoxaparin 40 MG/0.4 ML Syringe SUBCUT SCH (08:25)
[2018-10-07] MEDS: cefTRIAXone 2 GM in Sodium Chloride 0.9% 100 ML IV SCH (08:27)
[2018-10-07] MEDS ORDERED: Azithromycin 250 MG Tab PO SCH (16:00)
--- NOTE | 2018-10-07 16:53 | PCM.PN ---
- General Info Date of Service: 10/07/18 Functional Status: Reports: Pain Controlled, Tolerating Diet, Ambulating, Urinating - Review of Systems General: Reports: Weakness HEENT: Reports: No Symptoms Pulmonary: Reports: No Symptoms Cardiovascular: Reports: No Symptoms Gastrointestinal: Reports: No Symptoms Genitourinary: Reports: No Symptoms Musculoskeletal: Reports: No Symptoms Skin: Reports: No Symptoms Neurological: Reports: No Symptoms Psychiatric: Reports: No Symptoms - Patient Data Vitals - Most Recent: Last Vital Signs Temp 36.8 C 10/07/18 15:56 Pulse 40 L 10/07/18 15:56 Resp 16 10/07/18 15:56 BP 137/95 H 10/07/18 15:56 Pulse Ox 94 L 10/07/18 15:56 Weight - Most Recent: 79.333 kg I&O - Last 24 Hours: Intake & Output 10/07/18 10/07/18 10/07/18 06:59 14:59 22:59 Intake Total 2132 1040 Output Total 1500 Balance 632 1040 Lab Results Last 24 Hours: Laboratory Results - last 24 hr 10/07/18 10/07/18 Range/Units 06:10 06:10 WBC 15.58 H (4.23-9.07) K/mm3 RBC 4.02 L (4.63-6.08) M/mm3 Hgb 11.9 L (13.7-17.5) gm/L Hct 36.2 L (40.1-51.0) % MCV 90.0 (79.0-92.2) fl MCH 29.6 (25.7-32.2) pg MCHC 32.9 (32.2-35.5) g/dl RDW Std Deviation 44.1 H (35.1-43.9) fL Plt Count 177 (163-337) K/mm3 MPV 9.6 (9.4-12.3) fl Neut % (Auto) 92.6 H (34.0-67.9) % Lymph % (Auto) 3.9 L (21.8-53.1) % [place] % (Auto) 3.3 L (5.3-12.2) % Eos % (Auto) 0 L (0.8-7.0) Baso % (Auto) 0.0 L (0.1-1.2) % Neut # (Auto) 14.44 H (1.78-5.38) K/mm3 Lymph # (Auto) 0.60 L (1.32-3.57) K/mm3 [place] # (Auto) 0.51 (0.30-0.82) K/mm3 Eos # (Auto) 0.00 L (0.04-0.54) K/mm3 Baso # (Auto) 0.00 L (0.01-0.08) K/mm3 Manual Slide Review Normal smear Sodium 141 (136-145) mEq/L Potassium 3.8 (3.5-5.1) mEq/L Chloride 107 (98-107) mEq/L Carbon Dioxide 24 (21-32) mEq/L Anion Gap 13.8 (5-15) BUN 19 H (7-18) mg/dL Creatinine 0.8 (0.7-1.3) mg/dL Est Cr Clr Drug Dosing 86.28 mL/min Estimated GFR (MDRD) > 60 (>60) mL/min BUN/Creatinine Ratio 23.8 H (14-18) Glucose 140 H (83-115) mg/dL Calcium 8.4 L (8.5-10.1) mg/dL Magnesium 1.8 (1.8-2.4) mg/dl C-Reactive Protein 2.6 H* (<1.0) mg/dL Romaine Results Last 24 Hours: Microbiology 10/05/18 18:00 Quick Strep Confirmation Culture - Final Throat NEGATIVE FOR BETA STREP Group A Streptococcus Rapid Screen - Final NEGATIVE STREP A SCREEN 10/04/18 18:10 Aerobic Blood Culture - Preliminary Blood NO GROWTH AFTER 2 DAYS Anaerobic Blood Culture - Preliminary NO GROWTH AFTER 2 DAYS 10/04/18 18:02 Aerobic Blood Culture - Preliminary Blood NO GROWTH AFTER 2 DAYS Anaerobic Blood Culture - Preliminary NO GROWTH AFTER 2 DAYS Med Orders - Current: Current Medications Acetaminophen (Tylenol) 650 mg PO Q6H PRN PRN Reason: Pain/Fever Alprazolam (Xanax) 0.25 mg PO DAILY PRN PRN Reason: Anxiety Amlodipine Besylate (Norvasc) 5 mg PO DAILY [facility] Aspirin (Halfprin) 81 mg PO DAILY [facility] Last Admin: 10/07/18 08:19 Dose: 81 mg Azithromycin (Zithromax) 500 mg PO Q24H [facility] Last Admin: 10/07/18 15:57 Dose: 500 mg Benzonatate (Tessalon Perles) 200 mg PO TID [facility] Last Admin: 10/07/18 15:57 Dose: Not Given Cephalexin (Keflex) 500 mg PO Q8H [facility] Clopidogrel Bisulfate (Plavix) 75 mg PO DAILY [facility] Last Admin: 10/07/18 08:19 Dose: 75 mg Enoxaparin Sodium (Lovenox) 40 mg SUBCUT DAILY [facility] Last Admin: 10/07/18 08:25 Dose: 40 mg Finasteride (Proscar) 5 mg PO DAILY [facility] Last Admin: 10/07/18 08:19 Dose: 5 mg Hydralazine HCl (Apresoline) 10 mg IVPUSH Q6H PRN PRN Reason: Hypertension Last Admin: 10/06/18 09:44 Dose: 10 mg Isosorbide Mononitrate (Imdur) 30 mg PO DAILY [facility] Last Admin: 10/07/18 08:19 Dose: 30 mg Metoprolol Tartrate (Lopressor) 25 mg PO BID [facility] Last Admin: 10/07/18 08:20 Dose: 25 mg Metoprolol Tartrate (Lopressor) 5 mg IVPUSH Q4H PRN PRN Reason: Tachycardia Miscellaneous Information (Remove Patch) 1 ea TRDERM DAILY [facility] Last Admin: 10/07/18 08:33 Dose: 1 ea Nicotine (Habitrol) 21 mg TRDERM DAILY [facility] Last Admin: 10/07/18 08:22 Dose: 21 mg Prednisone (Prednisone) 20 mg PO WITHBREAKFAST [facility] Last Admin: 10/07/18 06:09 Dose: 20 mg Rosuvastatin Calcium (Crestor) 20 mg PO DAILY [facility] Last Admin: 10/07/18 08:19 Dose: 20 mg Sodium Chloride (Saline Flush) 10 ml FLUSH ASDIRECTED PRN PRN Reason: Keep Vein Open Last Admin: 10/04/18 18:13 Dose: 10 ml Tamsulosin HCl (Flomax) 0.4 mg PO DAILY [facility] Last Admin: 10/07/18 08:19 Dose: 0.4 mg Temazepam (Restoril) 7.5 mg PO BEDTIME PRN PRN Reason: Sleep Discontinued Medications Acetaminophen (Tylenol) 975 mg PO NOW ONE Stop: 10/04/18 18:06 Last Admin: 10/04/18 18:12 Dose: 975 mg Albuterol (Proventil Neb Soln) 2.5 mg NEB Q4HRRT PRN PRN Reason: Shortness of Breath Albuterol/Ipratropium (Duoneb 3.0-0.5 Mg/3 Ml) 3 ml NEB Q4HRRT [facility] Last Admin: 10/04/18 23:05 Dose: 3 ml Albuterol/Ipratropium (Duoneb 3.0-0.5 Mg/3 Ml) 3 ml NEB QIDRT [facility] Last Admin: 10/06/18 06:15 Dose: 3 ml Amlodipine Besylate (Norvasc) 2.5 mg PO DAILY [facility] Last Admin: 10/07/18 08:19 Dose: 2.5 mg Ceftriaxone Sodium (Rocephin) Confirm Administered Dose 2 gm .ROUTE .STK-MED ONE Stop: 10/04/18 18:47 Last Admin: 10/04/18 18:52 Dose: Not Given Ceftriaxone Sodium (Rocephin) Confirm Administered Dose 2 gm IV .STK-MED ONE Stop: 10/04/18 18:49 Last Admin: 10/04/18 18:52 Dose: Not Given Diphenhydramine HCl (Benadryl) 50 mg IVPUSH ONETIME ONE Stop: 10/05/18 11:40 Last Admin: 10/05/18 14:54 Dose: Not Given Sodium Chloride (Normal Saline) 1,000 mls @ 999 mls/hr IV ONETIME [facility] Last Admin: 10/04/18 18:11 Dose: 999 mls/hr Ceftriaxone Sodium 2 gm/ (Sodium Chloride) 100 mls @ 200 mls/hr IV ONETIME ONE Stop: 10/04/18 18:52 Last Admin: 10/04/18 18:52 Dose: 200 mls/hr Sodium Chloride (Normal Saline) Confirm Administered Dose 100 mls @ as directed .ROUTE .STK-MED ONE Stop: 10/04/18 18:49 Last Admin: 10/04/18 18:52 Dose: Not Given Azithromycin 500 mg/ Sodium (Chloride) 250 mls @ 250 mls/hr IV ONETIME ONE Stop: 10/04/18 23:31 Last Admin: 10/04/18 23:46 Dose: 250 mls/hr Ceftriaxone Sodium 2 gm/ (Sodium Chloride) 100 mls @ 200 mls/hr IV Q24H ONE Stop: 10/05/18 09:29 Last Admin: 10/05/18 08:51 Dose: 200 mls/hr Sodium Chloride (Normal Saline) 1,000 mls @ 100 mls/hr IV ASDIRECTED [facility] Last Admin: 10/07/18 01:23 Dose: 100 mls/hr Azithromycin 500 mg/ Sodium (Chloride) 250 mls @ 250 mls/hr IV Q24H [facility] Last Admin: 10/06/18 15:30 Dose: 250 mls/hr Ceftriaxone Sodium 2 gm/ (Sodium Chloride) 100 mls @ 200 mls/hr IV Q24H [facility] Last Admin: 10/07/18 08:27 Dose: 200 mls/hr Levalbuterol HCl (Xopenex) 1.25 mg NEB QIDRT [facility] Last Admin: 10/06/18 09:02 Dose: 1.25 mg Levalbuterol HCl (Xopenex) 1.25 mg NEB Q6HRRT PRN PRN Reason: hypoxia/ SOB Methylprednisolone Sodium Succinate (Solu-Medrol) 125 mg IVPUSH Q8H [facility] Last Admin: 10/06/18 11:32 Dose: 125 mg Methylprednisolone Sodium Succinate (Solu-Medrol) 80 mg IVPUSH Q12H [facility] Last Admin: 10/06/18 18:16 Dose: 80 mg Metoprolol Tartrate (Lopressor) Confirm Administered Dose 5 mg .ROUTE .STK-MED ONE Stop: 10/06/18 06:40 Last Admin: 10/06/18 06:58 Dose: Not Given Metoprolol Tartrate (Lopressor) 5 mg IVPUSH ONETIME ONE Stop: 10/06/18 06:41 Last Admin: 10/06/18 06:45 Dose: 5 mg Ondansetron HCl (Zofran) 4 mg IVPUSH ONETIME ONE Stop: 10/04/18 18:06 Last Admin: 10/04/18 18:12 Dose: 4 mg - Exam Quality Assessment: DVT Prophylaxis General: Alert, Oriented, Cooperative, No Acute Distress HEENT: Pupils Equal, Pupils Reactive, EOMI Neck: Trachea Midline Lungs: Normal Respiratory Effort, Decreased Breath Sounds Cardiovascular: Regular Rate, Regular Rhythm GI/Abdominal Exam: Normal Bowel Sounds, Soft, Non-Tender, No Organomegaly, No Distention (Male) Exam: Deferred Back Exam: Normal Inspection Extremities: Normal Inspection, Non-Tender, Normal Capillary Refill Skin: Warm Neurological: No New Focal Deficit, Normal Gait, Normal Speech Psy/Mental Status: Alert, Normal Affect, Normal Mood - Problem List & Annotations (1) CAD (coronary artery disease) SNOMED Code(s): 08072824 Code(s): I25.10 - ATHSCL HEART DISEASE OF [place] CORONARY ARTERY W/O ANG PCTRS Status: Acute Current Visit: Yes (2) Hyperlipidemia SNOMED Code(s): 02632828 Code(s): E78.5 - HYPERLIPIDEMIA, UNSPECIFIED Status: Acute Current Visit : Yes (3) Hypertension SNOMED Code(s): 08725007 Code(s): I10 - ESSENTIAL (PRIMARY) HYPERTENSION Status: Acute Current Visit: Yes (4) Chronic kidney disease SNOMED Code(s): 738266366 Code(s): N18.9 - CHRONIC KIDNEY DISEASE, UNSPECIFIED Status: Acute Current Visit: Yes (5) Emphysema lung SNOMED Code(s): 04725412 Code(s): J43.9 - EMPHYSEMA, UNSPECIFIED Status: Acute Current Visit: Yes (6) Pneumonia SNOMED Code(s): 216522832 Code(s): J18.9 - PNEUMONIA, UNSPECIFIED ORGANISM Status: Acute Current Visit: Yes Qualifiers: Pneumonia type: due to unspecified organism Laterality: right Lung location: lower lobe of lung Qualified Code(s): J18.1 - Lobar pneumonia, unspecified organism - Problem List Review Problem List Initiated/Reviewed/Updated: Yes - My Orders Last 24 Hours: My Active Orders 10/07/18 07:00 predniSONE 20 mg PO WITHBREAKFAST 10/07/18 09:00 Remove Patch 1 ea TRDERM DAILY 10/07/18 16:00 Azithromycin [Zithromax] 500 mg PO Q24H 10/07/18 18:00 CXR [Chest 2V] [CR] Routine 10/08/18 05:00 BMP [BASIC METABOLIC PANEL,BMP] [CHEM] DAILY CBC WITH AUTO DIFF [HEME] DAILY CRP [C-REACTIVE PROTEIN] [CHEM] DAILY MAGNESIUM [CHEM] DAILY TROPONIN I [CHEM] Routine 10/08/18 09:00 amLODIPine [Norvasc] 5 mg PO DAILY cephALEXin [Keflex] 500 mg PO Q8H 10/09/18 05:00 BMP [BASIC METABOLIC PANEL,BMP] [CHEM] DAILY CBC WITH AUTO DIFF [HEME] DAILY CRP [C-REACTIVE PROTEIN] [CHEM] DAILY MAGNESIUM [CHEM] DAILY - Plan Plan:: Impression: Outpatient ATB, doxycycline with prednisone failed therapy Active tobacco use Emphysema, query bronchitis cf PNA Hypoxemia Chest pain post NEB, CP work up initiated Chronic BPH CAD S/P PCI HTN HLD Plan: IVF Troponin Nitrates as needed Early Card follow with Dr Dudley Zithromax/Rocephin-->changed to oral formulation; Zithromax, Keflex Solumedrol-->changed to prednisone 20 mg taper. O2 1-2 l/m as needed Droplet isolation Home meds Nicotine replacement/tobacco cessation Daily labs PT/OT/RT/CM DVT/GI prophylaxis LOS>96 hours re: slow response to ATBs.
--- NOTE | 2018-10-07 18:24 | CR ---
Chest: 2 views of the chest were obtained. Comparison: Prior chest x-ray of 10/04/18 and 10/05/18. Heart size at the upper limits of normal. Mild tortuosity of the thoracic aorta is seen. Lung markings are minimally increased which are stable. Slight emphysematous change is again noted. No acute parenchymal change is seen. Stable degenerative change is noted within the spine. Impression: 1. Findings as noted above. Nothing acute is appreciated. Diagnostic code #2
[2018-10-07] MEDS: hydrALAZINE 20 MG/ML SDV IVPUSH PRN (21:51)
[2018-10-08] MEDS: predniSONE 20 MG Tab PO SCH (06:40)
[2018-10-08] MEDS ORDERED: Magnesium Sulfate/Water 2 GM in Premix Bag 1 BAG IV ONE (07:23)
[2018-10-08] MEDS: Benzonatate 100 MG Cap PO SCH (08:27)
[2018-10-08] MEDS: Metoprolol Tartrate 25 MG Tab PO SCH (08:32)
[2018-10-08] MEDS: Aspirin 81 MG Tab.EC PO SCH (08:34)
[2018-10-08] MEDS: Isosorbide Mononitrate 30 MG Tab.ER PO SCH (08:34)
[2018-10-08] MEDS: Finasteride 5 MG Tab PO SCH (08:34)
[2018-10-08] MEDS: Rosuvastatin 10 MG Tab PO SCH (08:35)
[2018-10-08] MEDS: Clopidogrel 75 MG Tab PO SCH (08:35)
[2018-10-08] MEDS: Tamsulosin 0.4 MG Cap.ER PO SCH (08:35)
[2018-10-08] MEDS: Nicotine 21 MG/24 Hr Patch TRDERM SCH (08:35)
[2018-10-08] MEDS: Enoxaparin 40 MG/0.4 ML Syringe SUBCUT SCH (08:36)
[2018-10-08] MEDS ORDERED: amLODIPine 5 MG Tab PO SCH (09:00)
[2018-10-08] MEDS ORDERED: Cephalexin 500 MG Cap PO SCH (09:00)
--- NOTE | 2018-10-08 09:28 | PCM.DCSUM1 ---
Discharge Summary - Hospital Course HPI Initial Comments: 73 year old male with history of tobacco dependence presents after a course of doxycycline/prednisone, patient states that he completed the course. The patient reports fever, chills and increasingly has had a cough. He however denies sputum production. He reports nasal congestion . The patient declined the flu vaccine. The patient is a full code. Diagnosis: Stroke: No - Discharge Data Discharge Date: 10/08/18 (Admit date: 10/04/18) Discharge Disposition: Home, Self-Care 01 Condition: Good - Discharge Diagnosis/Problem(s) (1) Bronchitis SNOMED Code(s): 54960949 ICD Code: J40 - BRONCHITIS, NOT SPECIFIED ACUTE OR CHRONIC Status: Acute Priority: High Current Visit: Yes (2) CAD (coronary artery disease) SNOMED Code(s): 60184053 ICD Code: I25.10 - ATHSCL HEART DISEASE OF [place] CORONARY ARTERY W/O ANG PCTRS Status: Chronic Priority: Medium Current Visit: No Qualifiers: Coronary Disease-Associated Artery/Lesion type: unspecified vessel or lesion type [place] vs. transplanted heart: unspecified whether [place] or transplanted heart Associated angina: angina presence unspecified Qualified Code(s): I25.10 - Atherosclerotic heart disease of [place] coronary artery without angina pectoris (3) Chronic kidney disease SNOMED Code(s): 485980798 ICD Code: N18.9 - CHRONIC KIDNEY DISEASE, UNSPECIFIED Status: Chronic Priority: Medium Current Visit: No Qualifiers: Chronic kidney disease stage: unspecified stage Qualified Code(s): N18.9 - Chronic kidney disease, unspecified (4) Emphysema lung SNOMED Code(s): 30527634 ICD Code: J43.9 - EMPHYSEMA, UNSPECIFIED Status: Chronic Priority: Medium Current Visit: No Qualifiers: Emphysema type: unspecified Qualified Code(s): J43.9 - Emphysema, unspecified (5) Hyperlipidemia SNOMED Code(s): 04476909 ICD Code: E78.5 - HYPERLIPIDEMIA, UNSPECIFIED Status: Chronic Current Visit: No Qualifiers: Hyperlipidemia type: unspecified Qualified Code(s): E78.5 - Hyperlipidemia , unspecified (6) Hypertension SNOMED Code(s): 58809437 ICD Code: I10 - ESSENTIAL (PRIMARY) HYPERTENSION Status: Chronic Priority : Low Current Visit: No Qualifiers: Hypertension type: unspecified Qualified Code(s): I10 - Essential (primary ) hypertension - Patient Summary/Data Labs Pending at D/C: None Recommended Follow-up Testing/Procedures: Follow-up with PCP within 7-10 days Follow-up with cardiology as scheduled Hospital Course: Impression: Outpatient ATB, doxycycline with prednisone failed therapy Active tobacco use Emphysema, query bronchitis cf PNA Hypoxemia Chest pain post NEB, CP work up initiated Chronic BPH CAD S/P PCI HTN HLD Plan: IVF Troponin Nitrates as needed Early Card follow with Dr Dudley Zithromax/Rocephin-->changed to oral formulation; Zithromax, Keflex Solumedrol-->changed to prednisone 20 mg taper. O2 1-2 l/m as needed Droplet isolation Home meds Nicotine replacement/tobacco cessation Daily labs PT/OT/RT/CM DVT/GI prophylaxis LOS>96 hours re: slow response to ATBs. Gene was admitted from our ED after failed outpatient treatment for pneumonia. He is a smoker with a significant cardiac history. Chest x-ray in the ED on 10/04/18 showed nothing acute. He was started on IV azithromycin and Rocephin along with Solu-Medrol. Once admitted is felt that this is more of a bronchitis than a pneumonia. Infectious workup including influenza, mycoplasma , strep pneumonia, and sputum culture was grossly negative. Labs did continue to improve. Chest x-ray on 10/05/18 noted emphysematous change and increased lung markings. This was suggestive of worsening bronchitis. Repeat chest x- ray on 10/07/18 showed minimally increased stable lung markings and emphysematous change with no parenchymal change. He was receiving scheduled duo nebs and did note that he became jittery and tachycardic after administration. He did have a run of ventricular tachycardia which resolved with IV metoprolol. After this nebulizations were switched to Xopenex and ultimately changed to just when necessary from scheduled. Solu-Medrol was also turned down and switched to by mouth prednisone. We did notice that he had elevated troponin which did trend up and down, however CK-MB was negative. He denied any chest pain or other cardiac symptoms. He was on a nicotine patch while here and requests continuation of nicotine patches on discharge. We discussed continuing to follow-up with his primary care provider and other resources such as and he quits or the [facility] for cessation assistance. Dr. Dorantes requested he be discharged on daily azithromycin for 5 days as well as every 8 hour by mouth Keflex for 5 days. He'll also be sent home on a prednisone taper of 20 mg for 3 days followed by 10 mg for 3 days. He did rapidly improve and was off oxygen prior to discharge. 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 He was instructed to return to the ED or contact his PCP should symptoms return or worsen. Instructed to continue utilizing his incentive spirometry until symptoms completely resolve. - Patient Instructions Diet: Heart Healthy Diet Activity: As Tolerated Showering/Bathing: May Shower Notify Provider of: Increased Pain, Nausea and/or Vomiting - Discharge Plan *PRESCRIPTION DRUG MONITORING PROGRAM REVIEWED*: No *COPY OF PRESCRIPTION DRUG MONITORING REPORT IN PATIENT JODI: No Prescriptions/Med Rec: Azithromycin [Zithromax] 500 mg PO Q24H #5 tablet cephALEXin [Keflex] 500 mg PO Q8H #15 cap Nicotine [Nicotine Patch] 21 mg TD DAILY #15 patch predniSONE [Prednisone] 10 mg PO ASDIRECTED #9 tablet Home Medications: Home Meds Finasteride [Proscar] 5 mg PO DAILY 05/04/16 [History] Lisinopril 5 mg PO DAILY 05/04/16 [History] Tamsulosin [Flomax] 0.4 mg PO DAILY 05/04/16 [History] Aspirin [Nando Chewable Aspirin] 81 mg PO DAILY 01/14/17 [History] ALPRAZolam [Xanax] 0.25 mg PO DAILY PRN 10/04/18 [History] Benzonatate [Tessalon Perle] 200 mg PO TID 10/04/18 [History] Clopidogrel [Plavix] 75 mg PO DAILY 10/04/18 [History] Isosorbide Mononitrate [Imdur] 30 mg PO DAILY 10/04/18 [History] Metoprolol Tartrate 25 mg PO BID 10/04/18 [History] Rosuvastatin [Crestor] 20 mg PO DAILY 10/04/18 [History] amLODIPine Besylate [Norvasc] 2.5 mg PO DAILY 10/04/18 [History] Azithromycin [Zithromax] 500 mg PO Q24H #5 tablet 10/08/18 [Rx] Nicotine [Nicotine Patch] 21 mg TD DAILY #15 patch 10/08/18 [Rx] cephALEXin [Keflex] 500 mg PO Q8H #15 cap 10/08/18 [Rx] predniSONE [Prednisone] 10 mg PO ASDIRECTED #9 tablet 10/08/18 [Rx] Oxygen Therapy Mode: Room Air Patient Handouts: Steps to Quit Smoking, Community-Acquired Pneumonia, Adult, [id number] Referrals: Jung Dudley DO [Ordering Only Provider] - 10/16/18 1:00 pm (This appt. is in [place] [facility] time please arrive at least 15-20 minutes early. This is your Senior Infrastructure Architect appt. phone # [phone]) Christopher Francois MD [Primary Care Provider] - 10/15/18 4:30 pm (Please follow-up with your primary care doctor, Dr. Francois, SaturdayOctober 15 at 4:30pm. ) - Discharge Summary/Plan Comment DC Time >30 min.: Yes (45 minutes ) - General Info Date of Service: 10/08/18 Admission Dx/Problem (Free Text: Admission Diagnosis/Problem Admission Diagnosis/Problem Pneumonia Subjective Update: In to see Guy. He is sitting in the chair waiting for discharge. We discussed his smoking status and discharge plan. He reports he feels pretty good. He is off of oxygen. Repeat troponin was checked and is down. Functional Status: Reports: Pain Controlled, Tolerating Diet, Ambulating, Urinating, Incentive Spirometry. Denies: New Symptoms - Review of Systems General: Reports: No Symptoms. Denies: Fever, Weakness, Fatigue, Chills HEENT: Reports: No Symptoms. Denies: Headaches, Sinus Congestion Pulmonary: Denies: Shortness of Breath, Pleuritic Chest Pain, Cough, Sputum, Hemoptysis, Wheezing Cardiovascular: Reports: No Symptoms. Denies: Chest Pain, Palpitations, Dyspnea on Exertion Gastrointestinal: Reports: No Symptoms. Denies: Abdominal Pain, Constipation, Diarrhea, Nausea, Vomiting Genitourinary: Reports: No Symptoms. Denies: Pain Musculoskeletal: Reports: No Symptoms Skin: Reports: No Symptoms. Denies: Cyanosis Neurological: Reports: No Symptoms. Denies: Confusion, Tremors, Trouble Speaking, Difficulty Walking, Gait Disturbance Psychiatric: Reports: No Symptoms - Patient Data Vitals - Most Recent: Last Vital Signs Temp 98.4 F 10/08/18 08:22 Pulse 69 10/08/18 08:32 Resp 20 10/08/18 08:22 BP 157/61 H 10/08/18 08:34 Pulse Ox 93 L 10/08/18 08:22 Weight - Most Recent: 173 lb 4.8 oz I&O - Last 24 hours: Intake & Output 10/07/18 10/08/18 10/08/18 22:59 06:59 14:59 Intake Total 1420 500 Output Total 2150 2400 Balance -730 -1900 Lab Results - Last 24 hrs: Laboratory Results - last 24 hr 10/08/18 10/08/18 Range/Units 05:45 05:45 WBC 8.80 (4.23-9.07) K/mm3 RBC 4.33 L (4.63-6.08) M/mm3 Hgb 12.8 L (13.7-17.5) gm/L Hct 38.8 L (40.1-51.0) % MCV 89.6 (79.0-92.2) fl MCH 29.6 (25.7-32.2) pg MCHC 33.0 (32.2-35.5) g/dl RDW Std Deviation 44.1 H (35.1-43.9) fL Plt Count 186 (163-337) K/mm3 MPV 10.0 (9.4-12.3) fl Neut % (Auto) 80.1 H (34.0-67.9) % Lymph % (Auto) 14.8 L (21.8-53.1) % [place] % (Auto) 4.9 L (5.3-12.2) % Eos % (Auto) 0 L (0.8-7.0) Baso % (Auto) 0.1 (0.1-1.2) % Neut # (Auto) 7.05 H (1.78-5.38) K/mm3 Lymph # (Auto) 1.30 L (1.32-3.57) K/mm3 [place] # (Auto) 0.43 (0.30-0.82) K/mm3 Eos # (Auto) 0.00 L (0.04-0.54) K/mm3 Baso # (Auto) 0.01 (0.01-0.08) K/mm3 Sodium 140 (136-145) mEq/L Potassium 3.6 (3.5-5.1) mEq/L Chloride 105 (98-107) mEq/L Carbon Dioxide 26 (21-32) mEq/L Anion Gap 12.6 (5-15) BUN 18 (7-18) mg/dL Creatinine 0.8 (0.7-1.3) mg/dL Est Cr Clr Drug Dosing 86.28 mL/min Estimated GFR (MDRD) > 60 (>60) mL/min BUN/Creatinine Ratio 22.5 H (14-18) Glucose 92 (83-115) mg/dL Calcium 8.3 L (8.5-10.1) mg/dL Magnesium 2.0 (1.8-2.4) mg/dl Troponin I 0.177 H* (0.00-0.056) ng/mL C-Reactive Protein 1.6 H* (<1.0) mg/dL QUINN Results - Last 24 hrs: Microbiology 10/04/18 18:10 Aerobic Blood Culture - Preliminary Blood NO GROWTH AFTER 3 DAYS Anaerobic Blood Culture - Preliminary NO GROWTH AFTER 3 DAYS 10/04/18 18:02 Aerobic Blood Culture - Preliminary Blood NO GROWTH AFTER 3 DAYS Anaerobic Blood Culture - Preliminary NO GROWTH AFTER 3 DAYS 10/05/18 18:00 Quick Strep Confirmation Culture - Final Throat NEGATIVE FOR BETA STREP Group A Streptococcus Rapid Screen - Final NEGATIVE STREP A SCREEN Med Orders - Current: Current Medications Acetaminophen (Tylenol) 650 mg PO Q6H PRN PRN Reason: Pain/Fever Alprazolam (Xanax) 0.25 mg PO DAILY PRN PRN Reason: Anxiety Amlodipine Besylate (Norvasc) 5 mg PO DAILY [facility] Last Admin: 10/08/18 08:34 Dose: 5 mg Aspirin (Halfprin) 81 mg PO DAILY [facility] Last Admin: 10/08/18 08:34 Dose: 81 mg Azithromycin (Zithromax) 500 mg PO Q24H [facility] Last Admin: 10/07/18 15:57 Dose: 500 mg Benzonatate (Tessalon Perles) 200 mg PO TID [facility] Last Admin: 10/08/18 08:27 Dose: Not Given Cephalexin (Keflex) 500 mg PO Q8H [facility] Last Admin: 10/08/18 08:34 Dose: 500 mg Clopidogrel Bisulfate (Plavix) 75 mg PO DAILY [facility] Last Admin: 10/08/18 08:35 Dose: 75 mg Enoxaparin Sodium (Lovenox) 40 mg SUBCUT DAILY [facility] Last Admin: 10/08/18 08:36 Dose: 40 mg Finasteride (Proscar) 5 mg PO DAILY [facility] Last Admin: 10/08/18 08:34 Dose: 5 mg Hydralazine HCl (Apresoline) 10 mg IVPUSH Q6H PRN PRN Reason: Hypertension Last Admin: 10/07/18 21:51 Dose: 10 mg Isosorbide Mononitrate (Imdur) 30 mg PO DAILY [facility] Last Admin: 10/08/18 08:34 Dose: 30 mg Metoprolol Tartrate (Lopressor) 25 mg PO BID [facility] Last Admin: 10/08/18 08:32 Dose: 25 mg Metoprolol Tartrate (Lopressor) 5 mg IVPUSH Q4H PRN PRN Reason: Tachycardia Miscellaneous Information (Remove Patch) 1 ea TRDERM DAILY [facility] Last Admin: 10/08/18 08:36 Dose: 1 ea Nicotine (Habitrol) 21 mg TRDERM DAILY [facility] Last Admin: 10/08/18 08:35 Dose: 21 mg Prednisone (Prednisone) 20 mg PO WITHBREAKFAST [facility] Last Admin: 10/08/18 06:40 Dose: 20 mg Rosuvastatin Calcium (Crestor) 20 mg PO DAILY [facility] Last Admin: 10/08/18 08:35 Dose: 20 mg Sodium Chloride (Saline Flush) 10 ml FLUSH ASDIRECTED PRN PRN Reason: Keep Vein Open Last Admin: 10/04/18 18:13 Dose: 10 ml Tamsulosin HCl (Flomax) 0.4 mg PO DAILY [facility] Last Admin: 10/08/18 08:35 Dose: 0.4 mg Temazepam (Restoril) 7.5 mg PO BEDTIME PRN PRN Reason: Sleep Discontinued Medications Acetaminophen (Tylenol) 975 mg PO NOW ONE Stop: 10/04/18 18:06 Last Admin: 10/04/18 18:12 Dose: 975 mg Albuterol (Proventil Neb Soln) 2.5 mg NEB Q4HRRT PRN PRN Reason: Shortness of Breath Albuterol/Ipratropium (Duoneb 3.0-0.5 Mg/3 Ml) 3 ml NEB Q4HRRT [facility] Last Admin: 10/04/18 23:05 Dose: 3 ml Albuterol/Ipratropium (Duoneb 3.0-0.5 Mg/3 Ml) 3 ml NEB QIDRT [facility] Last Admin: 10/06/18 06:15 Dose: 3 ml Amlodipine Besylate (Norvasc) 2.5 mg PO DAILY [facility] Last Admin: 10/07/18 08:19 Dose: 2.5 mg Ceftriaxone Sodium (Rocephin) Confirm Administered Dose 2 gm .ROUTE .STK-MED ONE Stop: 10/04/18 18:47 Last Admin: 10/04/18 18:52 Dose: Not Given Ceftriaxone Sodium (Rocephin) Confirm Administered Dose 2 gm IV .STK-MED ONE Stop: 10/04/18 18:49 Last Admin: 10/04/18 18:52 Dose: Not Given Diphenhydramine HCl (Benadryl) 50 mg IVPUSH ONETIME ONE Stop: 10/05/18 11:40 Last Admin: 10/05/18 14:54 Dose: Not Given Sodium Chloride (Normal Saline) 1,000 mls @ 999 mls/hr IV ONETIME [facility] Last Admin: 10/04/18 18:11 Dose: 999 mls/hr Ceftriaxone Sodium 2 gm/ (Sodium Chloride) 100 mls @ 200 mls/hr IV ONETIME ONE Stop: 10/04/18 18:52 Last Admin: 10/04/18 18:52 Dose: 200 mls/hr Sodium Chloride (Normal Saline) Confirm Administered Dose 100 mls @ as directed .ROUTE .STK-MED ONE Stop: 10/04/18 18:49 Last Admin: 10/04/18 18:52 Dose: Not Given Azithromycin 500 mg/ Sodium (Chloride) 250 mls @ 250 mls/hr IV ONETIME ONE Stop: 10/04/18 23:31 Last Admin: 10/04/18 23:46 Dose: 250 mls/hr Ceftriaxone Sodium 2 gm/ (Sodium Chloride) 100 mls @ 200 mls/hr IV Q24H ONE Stop: 10/05/18 09:29 Last Admin: 10/05/18 08:51 Dose: 200 mls/hr Sodium Chloride (Normal Saline) 1,000 mls @ 100 mls/hr IV ASDIRECTED [facility] Last Admin: 10/07/18 01:23 Dose: 100 mls/hr Azithromycin 500 mg/ Sodium (Chloride) 250 mls @ 250 mls/hr IV Q24H [facility] Last Admin: 10/06/18 15:30 Dose: 250 mls/hr Ceftriaxone Sodium 2 gm/ (Sodium Chloride) 100 mls @ 200 mls/hr IV Q24H [facility] Last Admin: 10/07/18 08:27 Dose: 200 mls/hr Magnesium Sulfate 2 gm/ Premix 50 mls @ 25 mls/hr IV ONETIME ONE Stop: 10/08/18 09:22 Last Admin: 10/08/18 08:41 Dose: 25 mls/hr Levalbuterol HCl (Xopenex) 1.25 mg NEB QIDRT [facility] Last Admin: 10/06/18 09:02 Dose: 1.25 mg Levalbuterol HCl (Xopenex) 1.25 mg NEB Q6HRRT PRN PRN Reason: hypoxia/ SOB Methylprednisolone Sodium Succinate (Solu-Medrol) 125 mg IVPUSH Q8H [facility] Last Admin: 10/06/18 11:32 Dose: 125 mg Methylprednisolone Sodium Succinate (Solu-Medrol) 80 mg IVPUSH Q12H [facility] Last Admin: 10/06/18 18:16 Dose: 80 mg Metoprolol Tartrate (Lopressor) Confirm Administered Dose 5 mg .ROUTE .STK-MED ONE Stop: 10/06/18 06:40 Last Admin: 10/06/18 06:58 Dose: Not Given Metoprolol Tartrate (Lopressor) 5 mg IVPUSH ONETIME ONE Stop: 10/06/18 06:41 Last Admin: 10/06/18 06:45 Dose: 5 mg Ondansetron HCl (Zofran) 4 mg IVPUSH ONETIME ONE Stop: 10/04/18 18:06 Last Admin: 10/04/18 18:12 Dose: 4 mg - Exam Quality Assessment: Reports: DVT Prophylaxis General: Reports: Alert, Oriented, Cooperative, No Acute Distress HEENT: Reports: Pupils Equal, Pupils Reactive, EOMI, Mucous Membr. Moist/[place] Neck: Reports: Supple, Trachea Midline Lungs: Reports: Normal Respiratory Effort, Decreased Breath Sounds. Denies: Rhonchi, Rub, Wheezing Cardiovascular: Reports: Regular Rate, Regular Rhythm GI/Abdominal Exam: Normal Bowel Sounds, Soft, Non-Tender, No Organomegaly, No Distention (Male) Exam: Deferred Rectal (Males) Exam: Deferred Back Exam: Reports: Normal Inspection, Full Range of Motion Extremities: Normal Inspection, Normal Range of Motion, Non-Tender, No Pedal Edema, Normal Capillary Refill Skin: Reports: Warm, Dry, Intact Neurological: Reports: No New Focal Deficit Psy/Mental Status: Reports: Alert, Normal Affect, Normal Mood
[2018-10-08 11:36] VITALS: BP 142/77
== END 2018-10-08 14:05 | disposition home or self-care (01) | DRG 203 ==
LOC: JD.ED 17:33 → JD.MS 20:14
PROVIDERS: ADMIT Internal Medicine Cardiovascular Disease; ATTEND Internal Medicine Cardiovascular Disease
DX: J18.1 Lobar pneumonia, unspecified organism (principal); F17.200 Nicotine dependence, unspecified, uncomplicated; J40 Bronchitis, not specified as acute or chronic; J43.9 Emphysema, unspecified; I10 Essential (primary) hypertension; I25.10 Atherosclerotic heart disease of native coronary artery without angina pectoris; E78.00 Pure hypercholesterolemia, unspecified; N40.0 Benign prostatic hyperplasia without lower urinary tract symptoms; F17.210 Nicotine dependence, cigarettes, uncomplicated; E78.5 Hyperlipidemia, unspecified; I12.9 Hypertensive chronic kidney disease with stage 1 through stage 4 chronic kidney disease, or unspecified chronic kidney disease; N18.9 Chronic kidney disease, unspecified; R06.82 Tachypnea, not elsewhere classified; R11.10 Vomiting, unspecified; R50.9 Fever, unspecified; R05 Cough; R06.03 Acute respiratory distress; R09.02 Hypoxemia; H54.7 Unspecified visual loss; Z86.010 Personal history of colon polyps; Z79.82 Long term (current) use of aspirin; Z79.899 Other long term (current) drug therapy; Z95.5 Presence of coronary angioplasty implant and graft; Z91.018 Allergy to other foods
CPT/HCPCS: 36415; 71045; 80053; 83605; 85025; 86140; 86738; 87040 ×2; 87804 ×2; 96361; 96365; 96375; 99284; A9270; J0696; J2405; J7030; J7040; 71046; 71046-26; 80048; 82553; 83735; 84484; 85007; 85027; 87081; 87205; 87430; 93005; 93010; 94640; 94667; 94668; 94760; 94761; J0360; J0456; J1650; J2930; J3475; J3490; J7050; J7612-GY; J7620-GY

== ENCOUNTER 2019-06-29 08:06 | Inpatient (IN) | payer MEDICARE, BC ==
[2019-06-29] MEDS ORDERED: Sodium Chloride 0.9% 10 ML Syringe FLUSH PRN (08:29)
[2019-06-29] MEDS ORDERED: cefTRIAXone 2 GM in Sodium Chloride 0.9% 100 ML IV ONE ×2 (08:29→08:43)
[2019-06-29] MEDS ORDERED: Sodium Chloride 0.9% 1,000 ML IV ONE (08:29)
[2019-06-29] MEDS ORDERED: Oseltamivir 75 MG Cap PO ONE (10:42)
[2019-06-29] MEDS ORDERED: Acetaminophen 325 MG Tab PO ONE (10:43)
--- NOTE | 2019-06-29 11:12 | EDM.PDOC ---
ED HPI GENERAL MEDICAL PROBLEM - General Chief Complaint: Fever Stated Complaint: POSS PNEUMONIA Time Seen by Provider: 06/29/19 08:24 Source of Information: Reports: Patient, Family History Limitations: Reports: No Limitations - History of Present Illness INITIAL COMMENTS - FREE TEXT/NARRATIVE: The patient presents with a fever, chills, and cough. This started yesterday and he is short of breath. He has no chest pain. He did fall a couple times because he is so weak. He has no appetite. He has a history of pneumonia in the pat and he will usually get it once per year. He does smoke. He has no history of asthma or COPD. He has a history of heart disease with a stent. He has no abdominal pain or dysuria. He does have a headache when he coughs. Onset: Gradual Duration: Day(s): (Last night) Location: Reports: Head Quality: Reports: Ache Severity: Moderate Improves with: Reports: None Worsens with: Reports: None Associated Symptoms: Reports: Cough, Fever/Chills, Headaches, Shortness of Breath. Denies: Chest Pain, Nausea/Vomiting - Related Data Allergies Allergy/AdvReac Type Severity Reaction Status Date / Time orange juice Allergy Itching Verified 06/29/19 08:18 Home Meds: Home Meds Finasteride [Proscar] 5 mg PO DAILY 05/04/16 [History] Lisinopril 5 mg PO DAILY 05/04/16 [History] Tamsulosin [Flomax] 0.4 mg PO DAILY 05/04/16 [History] Aspirin [Nando Chewable Aspirin] 81 mg PO DAILY 01/14/17 [History] ALPRAZolam [Xanax] 0.25 mg PO DAILY PRN 10/04/18 [History] Clopidogrel [Plavix] 75 mg PO DAILY 10/04/18 [History] Isosorbide Mononitrate [Imdur] 30 mg PO DAILY 10/04/18 [History] Metoprolol Tartrate 25 mg PO BID 10/04/18 [History] Rosuvastatin [Crestor] 20 mg PO DAILY 10/04/18 [History] amLODIPine Besylate [Norvasc] 2.5 mg PO DAILY 10/04/18 [History] Past Medical History HEENT History: Reports: Impaired Vision, Other (See Below) Other HEENT History: we3ars glasses Cardiovascular History: Reports: CAD, High Cholesterol, Hypertension Gastrointestinal History: Reports: Colon Polyp, GI Bleed, Other (See Below) Other Gastrointestinal History: Diverticulitis Genitourinary History: Reports: BPH Oncologic (Cancer) History: Reports: None - Past Surgical History HEENT Surgical History: Reports: None Cardiovascular Surgical History: Reports: Coronary Artery Stent GI Surgical History: Reports: None Male Surgical History: Reports: None Social & Family History - Family History Family Medical History: Noncontributory - Tobacco Use Smoking Status *Q: Current Every Day Smoker Years of Tobacco use: 55 Packs/Tins Daily: 0.5 - Caffeine Use Caffeine Use: Reports: Coffee Other Caffeine Use: 5 cups of coffee everyday. Caffeine Use Comment: 3 cups avg per day - Recreational Drug Use Recreational Drug Use: No ED ROS GENERAL - Review of Systems Review Of Systems: See Below Constitutional: Reports: Fever, Chills, Weakness, Fatigue HEENT: Reports: No Symptoms Respiratory: Reports: Shortness of Breath, Cough Cardiovascular: Reports: No Symptoms Endocrine: Reports: No Symptoms GI/Abdominal: Reports: Decreased Appetite. Denies: Abdominal Pain, Nausea, Vomiting : Reports: No Symptoms Musculoskeletal: Reports: No Symptoms ED EXAM, SEPSIS - Physical Exam Exam: See Below Exam Limited By: No Limitations General Appearance: Alert, No Apparent Distress Ears: Normal External Exam Nose: Normal Inspection Head: Atraumatic, Normocephalic Neck: Normal Inspection Respiratory/Chest: No Respiratory Distress, Decreased Breath Sounds, Rhonchi Cardiovascular: Regular Rate, Rhythm, No Edema, No Murmur GI/Abdominal Exam: Soft, Non-Tender, No Organomegaly, No Mass Back: Normal Inspection Extremities: Normal Inspection Neurological: Alert, Oriented, No Motor/Sensory Deficits EKG INTERPRETATION EKG Date: 06/29/19 Time: 08:14 Rhythm: NSR Rate (Beats/Min): 98 [place]: LAD-Left [place] Deviation P-Wave: Present QRS: RBBB ST-T: Normal QT: Normal Course - Vital Signs Last Recorded V/S: Last Vital Signs Temp 100.6 F 06/29/19 11:02 Pulse 98 06/29/19 08:16 Resp 24 H 06/29/19 08:16 BP 150/79 H 06/29/19 08:16 Pulse Ox 91 L 06/29/19 08:16 - Orders/Labs/Meds Orders: Active Orders 24 hr Category Date Time Status EKG Documentation Completion [RC] ASDIRECTED Care 06/29/19 08:30 Active Chest 2V [CR] Stat Exams 06/29/19 08:29 Taken CULTURE BLOOD [BC] Stat Lab 06/29/19 08:43 Received CULTURE BLOOD [BC] Stat Lab 06/29/19 08:57 Received Sodium Chloride 0.9% [Normal Saline] 1,000 ml Med 06/29/19 08:29 Active IV BOLUS Sodium Chloride 0.9% [Saline Flush] Med 06/29/19 08:29 Active 10 ml FLUSH ASDIRECTED PRN Blood Culture x2 Reflex Set [OM.PC] Stat Oth 06/29/19 08:29 Ordered Saline Lock Insert [OM.PC] Stat Oth 06/29/19 08:29 Ordered Severe Sepsis Onset Time [OM.PC] Stat Oth 06/29/19 08:29 Ordered EKG 12 Lead [EK] Stat Ther 06/29/19 08:29 Ordered Medication Orders Sodium Chloride (Normal Saline) 1,000 mls @ 150 mls/hr IV BOLUS ONE Stop: 06/29/19 15:08 Last Admin: 06/29/19 09:04 Dose: 150 mls/hr Sodium Chloride (Saline Flush) 10 ml FLUSH ASDIRECTED PRN PRN Reason: Keep Vein Open Last Admin: 06/29/19 09:31 Dose: 10 ml Labs: Laboratory Tests 06/29/19 06/29/19 06/29/19 Range/Units 08:43 08:43 08:43 WBC 4.93 (4.23-9.07) K/mm3 RBC 5.10 (4.63-6.08) M/mm3 Hgb 14.8 D (13.7-17.5) gm/dl Hct 44.6 (40.1-51.0) % MCV 87.5 (79.0-92.2) fl MCH 29.0 (25.7-32.2) pg MCHC 33.2 (32.2-35.5) g/dl RDW Std Deviation 46.5 H (35.1-43.9) fL Plt Count 132 L (163-337) K/mm3 MPV 10.2 (9.4-12.3) fl Neutrophils % (Manual) 78 H (40-60) % Band Neutrophils % 0 (0-10) % Lymphocytes % (Manual) 13 L (20-40) % Atypical Lymphs % 0 % Monocytes % (Manual) 9 (2-10) % Eosinophils % (Manual) 0 L (0.8-7.0) % Basophils % (Manual) 0 L (0.2-1.2) Platelet Estimate Adequate RBC Morph Comment Normal PT 11.5 (9.7-12.0) SECONDS INR 1.06 Sodium 140 (136-145) mEq/L Potassium 3.5 (3.5-5.1) mEq/L Chloride 103 (98-107) mEq/L Carbon Dioxide 23 (21-32) mEq/L Anion Gap 17.5 H (5-15) BUN 18 (7-18) mg/dL Creatinine 1.0 (0.7-1.3) mg/dL Est Cr Clr Drug Dosing 67.98 mL/min Estimated GFR (MDRD) > 60 (>60) mL/min BUN/Creatinine Ratio 18.0 (14-18) Glucose 116 H (83-115) mg/dL Lactic Acid (0.4-2.0) mmol/L Calcium 8.3 L (8.5-10.1) mg/dL Total Bilirubin 1.0 (0.2-1.0) mg/dL AST 26 (15-37) U/L ALT 25 (16-63) U/L Alkaline Phosphatase 95 (46-116) U/L C-Reactive Protein 1.2 H* (<1.0) mg/dL Total Protein 7.2 (6.4-8.2) g/dl Albumin 4.1 (3.4-5.0) g/dl Globulin 3.1 gm/dL Albumin/Globulin Ratio 1.3 (1-2) 06/29/19 Range/Units 08:43 WBC (4.23-9.07) K/mm3 RBC (4.63-6.08) M/mm3 Hgb (13.7-17.5) gm/dl Hct (40.1-51.0) % MCV (79.0-92.2) fl MCH (25.7-32.2) pg MCHC (32.2-35.5) g/dl RDW Std Deviation (35.1-43.9) fL Plt Count (163-337) K/mm3 MPV (9.4-12.3) fl Neutrophils % (Manual) (40-60) % Band Neutrophils % (0-10) % Lymphocytes % (Manual) (20-40) % Atypical Lymphs % % Monocytes % (Manual) (2-10) % Eosinophils % (Manual) (0.8-7.0) % Basophils % (Manual) (0.2-1.2) Platelet Estimate RBC Morph Comment PT (9.7-12.0) SECONDS INR Sodium (136-145) mEq/L Potassium (3.5-5.1) mEq/L Chloride (98-107) mEq/L Carbon Dioxide (21-32) mEq/L Anion Gap (5-15) BUN (7-18) mg/dL Creatinine (0.7-1.3) mg/dL Est Cr Clr Drug Dosing mL/min Estimated GFR (MDRD) (>60) mL/min BUN/Creatinine Ratio (14-18) Glucose (83-115) mg/dL Lactic Acid 1.2 (0.4-2.0) mmol/L Calcium (8.5-10.1) mg/dL Total Bilirubin (0.2-1.0) mg/dL AST (15-37) U/L ALT (16-63) U/L Alkaline Phosphatase (46-116) U/L C-Reactive Protein (<1.0) mg/dL Total Protein (6.4-8.2) g/dl Albumin (3.4-5.0) g/dl Globulin gm/dL Albumin/Globulin Ratio (1-2) Meds: Medications Generic Name Dose Route Start Last Admin Trade Name Freq PRN Reason Stop Dose Admin Sodium Chloride 1,000 mls @ 150 mls/hr 06/29/19 08:29 06/29/19 09:04 Normal Saline IV 06/29/19 15:08 150 mls/hr BOLUS ONE Administration Sodium Chloride 10 ml 06/29/19 08:29 06/29/19 09:31 Saline Flush FLUSH 10 ml ASDIRECTED PRN Administration Keep Vein Open Discontinued Medications Generic Name Dose Route Start Last Admin Trade Name Freq PRN Reason Stop Dose Admin Acetaminophen 975 mg 06/29/19 10:43 06/29/19 11:02 Tylenol PO 06/29/19 10:44 975 mg ONETIME ONE Administration Ceftriaxone Sodium 2 gm/ 100 mls @ 200 mls/hr 06/29/19 08:29 06/29/19 09:41 Sodium Chloride IV 06/29/19 08:58 Not Given STAT ONE Ceftriaxone Sodium 2 gm/ 100 mls @ 200 mls/hr 06/29/19 08:43 06/29/19 09:14 Sodium Chloride IV 06/29/19 09:12 200 mls/hr STAT ONE Administration Oseltamivir Phosphate 75 mg 06/29/19 10:42 06/29/19 11:03 Tamiflu PO 06/29/19 10:43 75 mg ONETIME ONE Administration - Re-Assessments/Exams Free Text/Narrative Re-Assessment/Exam: 06/29/19 11:14 The patient screened in for sepsis. I ordered an IV NS at 150ml/hr, EKG, labs, blood cultures and lactic acid, CXR and EKG. His EKG shows a RBBB with no acute changes. His CXR shows no infiltrate. His CBC and CMP look good. His lactic acid was normal. His influenza A was positive. I did ordered tamiflu, rocephin 2 grams IV, and tylenol 975mg PO. I feel he needs to be admitted. I called Dr Rosenthal and he agreed to the admission. Departure - Departure Time of Disposition: 11:20 Disposition: Refer to Observation Condition: Fair Clinical Impression: Influenza A, Generalized weakness - Discharge Information Referrals: Christopher Francois MD [Primary Care Provider] - Sepsis Event Note - Evaluation Sepsis Screening Result: Possible Severe Sepsis Risk - Focused Exam Vital Signs: Vital Signs Temp Temp Pulse Resp BP Pulse Ox 06/29/19 11:02 100.6 F 06/29/19 10:40 100.6 F 06/29/19 08:16 102.2 F H 98 24 H 150/79 H 91 L Date Exam was Performed: 06/29/19 Time Exam was Performed: 11:07 - My Orders Last 24 Hours: My Active Orders 06/29/19 08:29 Chest 2V [CR] Stat Sodium Chloride 0.9% [Normal Saline] 1,000 ml IV BOLUS Sodium Chloride 0.9% [Saline Flush] 10 ml FLUSH ASDIRECTED PRN Blood Culture x2 Reflex Set [OM.PC] Stat Saline Lock Insert [OM.PC] Stat Severe Sepsis Onset Time [OM.PC] Stat EKG 12 Lead [EK] Stat 06/29/19 08:30 EKG Documentation Completion [RC] ASDIRECTED 06/29/19 08:43 CULTURE BLOOD [BC] Stat 06/29/19 08:57 CULTURE BLOOD [BC] Stat - Assessment/Plan Last 24 Hours: My Active Orders 06/29/19 08:29 Chest 2V [CR] Stat Sodium Chloride 0.9% [Normal Saline] 1,000 ml IV BOLUS Sodium Chloride 0.9% [Saline Flush] 10 ml FLUSH ASDIRECTED PRN Blood Culture x2 Reflex Set [OM.PC] Stat Saline Lock Insert [OM.PC] Stat Severe Sepsis Onset Time [OM.PC] Stat EKG 12 Lead [EK] Stat 06/29/19 08:30 EKG Documentation Completion [RC] ASDIRECTED 06/29/19 08:43 CULTURE BLOOD [BC] Stat 06/29/19 08:57 CULTURE BLOOD [BC] Stat
--- NOTE | 2019-06-29 11:46 | CR ---
Chest: Two views of the chest were obtained. Comparison: Prior chest x-ray of 10/07/18. Heart size and mediastinum are within normal limits. Lungs are clear. Bony structures show slight degenerative change throughout the spine. Surgical clips are seen from prior cholecystectomy. Impression: 1. Nothing acute is appreciated on two-view chest x-ray. Diagnostic code #2 This report was dictated in [place] Standard Time
[2019-06-29] MEDS ORDERED: Ondansetron 4 MG/2 ML SDV IV PRN (13:52)
[2019-06-29] MEDS ORDERED: Acetaminophen 325 MG Tab PO PRN (13:52)
[2019-06-29] MEDS ORDERED: Ibuprofen 600 MG Tab PO PRN (13:52)
[2019-06-29] MEDS ORDERED: ALPRAZolam 0.25 MG Tab PO PRN (13:58)
--- NOTE | 2019-06-29 14:20 | PCM.HP.2 ---
H&P History of Present Illness - General Date of Service: 06/29/19 Admit Problem/Dx: Admission Diagnosis/Problem Admission Diagnosis/Problem Influenza due to influenza A virus - History of Present Illness Initial Comments - Free Text/Narative: 74-year-old male with history of coronary artery disease and emphysema (found on chest x-ray, but no official diagnosis of COPD) presents to the emergency room with fever, weakness, falls, vomiting, and cough. Patient states that yesterday morning he did develop a cough and by midnight he fell out of bed because he was dizzy. Patient then started vomiting and over the morning became progressively weaker. Patient states he did have a fever of 102 last night at 2100 hrs. patient also stated he has a headache that is worse with coughing but no muscle aches. He is fatigued. He has 3 stents with the first stent being in 2002 and last had a couple of years ago. He does smoke approximately 1/2 pack/day but refuses a patch at this time. In the emergency room patient was found to be hypoxemic and is currently on 2 L nasal cannula. Influenza A swab was positive. Chest x-ray showed no significant change or acute process. Labs: WBC 4.93, hemoglobin 14.8, platelets 132, sodium 140, potassium 3.5, anion gap 17.5, BUN 18, creatinine 1.0, glucose 116, C-reactive protein 1.2, lactic acid 1.2. ECG: Ventricular rate of 98 bpm with atrial premature complexes. Right bundle branch block with left anterior fascicular block. No significant change from October 06, 2018. In the emergency room patient was given Tamiflu 75 mg, bolus of IV fluid, and ceftriaxone 2 g. He was also given Tylenol for fever. He was then transferred to the floor. - Related Data Allergies/Adverse Reactions: Allergies Allergy/AdvReac Type Severity Reaction Status Date / Time orange juice Allergy Itching Verified 06/29/19 08:18 Home Medications: Home Meds Finasteride [Proscar] 5 mg PO DAILY 05/04/16 [History] Lisinopril 5 mg PO DAILY 05/04/16 [History] Tamsulosin [Flomax] 0.4 mg PO BEDTIME 05/04/16 [History] Aspirin [Nando Chewable Aspirin] 81 mg PO DAILY 01/14/17 [History] ALPRAZolam [Xanax] 0.25 mg PO DAILY PRN 10/04/18 [History] Clopidogrel [Plavix] 75 mg PO DAILY 10/04/18 [History] Isosorbide Mononitrate [Imdur] 30 mg PO DAILY 10/04/18 [History] Metoprolol Tartrate 25 mg PO BID 10/04/18 [History] Rosuvastatin [Crestor] 20 mg PO DAILY 10/04/18 [History] amLODIPine Besylate [Norvasc] 2.5 mg PO DAILY 10/04/18 [History] Past Medical History HEENT History: Reports: Impaired Vision, Other (See Below) Other HEENT History: we3ars glasses Cardiovascular History: Reports: CAD, High Cholesterol, Hypertension Gastrointestinal History: Reports: Colon Polyp, GI Bleed, Other (See Below) Other Gastrointestinal History: Diverticulitis Genitourinary History: Reports: BPH Oncologic (Cancer) History: Reports: None - Past Surgical History HEENT Surgical History: Reports: None Cardiovascular Surgical History: Reports: Coronary Artery Stent GI Surgical History: Reports: None Male Surgical History: Reports: None Social & Family History - Family History Family Medical History: Noncontributory - Tobacco Use Smoking Status *Q: Current Every Day Smoker Years of Tobacco use: 55 Packs/Tins Daily: 0.5 - Caffeine Use Caffeine Use: Reports: Coffee Other Caffeine Use: 5 cups of coffee everyday. Caffeine Use Comment: 3 cups avg per day - Recreational Drug Use Recreational Drug Use: No H&P Review of Systems - Review of Systems: Review Of Systems: Comprehensive ROS is negative, except as noted in HPI. Exam - Exam Exam: See Below - Vital Signs Vital Signs: Last Vital Signs Temp 102.7 F H 06/29/19 12:52 Pulse 64 06/29/19 13:21 Resp 32 H 06/29/19 12:52 BP 123/48 L 06/29/19 12:52 Pulse Ox 93 L 06/29/19 12:52 Weight: 270 lb - Exam Quality Assessment: Supplemental Oxygen General: Oriented, Cooperative, Lethargic HEENT: Conjunctiva Clear, EOMI Neck: Supple, Trachea Midline, 2 Lungs: Clear to Auscultation, Normal Respiratory Effort Cardiovascular: Regular Rate, Regular Rhythm GI/Abdominal Exam: Normal Bowel Sounds, Soft, Non-Tender, No Organomegaly, No Distention, No Abnormal Bruit, Pelvis Stable Extremities: Normal Inspection, Normal Range of Motion, Non-Tender, No Pedal Edema, Normal Capillary Refill Skin: Warm, Dry, Intact Neuro Extensive - Mental Status: Alert, Oriented x3, Normal Mood/Affect, Normal Cognition, Memory Intact Neuro Extensive - Motor, Sensory, Reflexes: CN II-XII Intact Psychiatric: Alert, Normal Affect, Normal Mood - Patient Data Lab Results Last 24 hrs: Laboratory Results - last 24 hr 06/29/19 06/29/19 06/29/19 Range/Units 08:43 08:43 08:43 WBC 4.93 (4.23-9.07) K/mm3 RBC 5.10 (4.63-6.08) M/mm3 Hgb 14.8 D (13.7-17.5) gm/dl Hct 44.6 (40.1-51.0) % MCV 87.5 (79.0-92.2) fl MCH 29.0 (25.7-32.2) pg MCHC 33.2 (32.2-35.5) g/dl RDW Std Deviation 46.5 H (35.1-43.9) fL Plt Count 132 L (163-337) K/mm3 MPV 10.2 (9.4-12.3) fl Neutrophils % (Manual) 78 H (40-60) % Band Neutrophils % 0 (0-10) % Lymphocytes % (Manual) 13 L (20-40) % Atypical Lymphs % 0 % Monocytes % (Manual) 9 (2-10) % Eosinophils % (Manual) 0 L (0.8-7.0) % Basophils % (Manual) 0 L (0.2-1.2) Platelet Estimate Adequate RBC Morph Comment Normal PT 11.5 (9.7-12.0) SECONDS INR 1.06 Sodium 140 (136-145) mEq/L Potassium 3.5 (3.5-5.1) mEq/L Chloride 103 (98-107) mEq/L Carbon Dioxide 23 (21-32) mEq/L Anion Gap 17.5 H (5-15) BUN 18 (7-18) mg/dL Creatinine 1.0 (0.7-1.3) mg/dL Est Cr Clr Drug Dosing 67.98 mL/min Estimated GFR (MDRD) > 60 (>60) mL/min BUN/Creatinine Ratio 18.0 (14-18) Glucose 116 H (83-115) mg/dL Lactic Acid (0.4-2.0) mmol/L Calcium 8.3 L (8.5-10.1) mg/dL Total Bilirubin 1.0 (0.2-1.0) mg/dL AST 26 (15-37) U/L ALT 25 (16-63) U/L Alkaline Phosphatase 95 (46-116) U/L C-Reactive Protein 1.2 H* (<1.0) mg/dL Total Protein 7.2 (6.4-8.2) g/dl Albumin 4.1 (3.4-5.0) g/dl Globulin 3.1 gm/dL Albumin/Globulin Ratio 1.3 (1-2) 06/29/19 Range/Units 08:43 WBC (4.23-9.07) K/mm3 RBC (4.63-6.08) M/mm3 Hgb (13.7-17.5) gm/dl Hct (40.1-51.0) % MCV (79.0-92.2) fl MCH (25.7-32.2) pg MCHC (32.2-35.5) g/dl RDW Std Deviation (35.1-43.9) fL Plt Count (163-337) K/mm3 MPV (9.4-12.3) fl Neutrophils % (Manual) (40-60) % Band Neutrophils % (0-10) % Lymphocytes % (Manual) (20-40) % Atypical Lymphs % % Monocytes % (Manual) (2-10) % Eosinophils % (Manual) (0.8-7.0) % Basophils % (Manual) (0.2-1.2) Platelet Estimate RBC Morph Comment PT (9.7-12.0) SECONDS INR Sodium (136-145) mEq/L Potassium (3.5-5.1) mEq/L Chloride (98-107) mEq/L Carbon Dioxide (21-32) mEq/L Anion Gap (5-15) BUN (7-18) mg/dL Creatinine (0.7-1.3) mg/dL Est Cr Clr Drug Dosing mL/min Estimated GFR (MDRD) (>60) mL/min BUN/Creatinine Ratio (14-18) Glucose (83-115) mg/dL Lactic Acid 1.2 (0.4-2.0) mmol/L Calcium (8.5-10.1) mg/dL Total Bilirubin (0.2-1.0) mg/dL AST (15-37) U/L ALT (16-63) U/L Alkaline Phosphatase (46-116) U/L C-Reactive Protein (<1.0) mg/dL Total Protein (6.4-8.2) g/dl Albumin (3.4-5.0) g/dl Globulin gm/dL Albumin/Globulin Ratio (1-2) Result Diagrams: 06/29/19 08:43 06/29/19 08:43 Romaine Results Last 24 hrs: Microbiology 06/29/19 10:08 Influenza Type A Antigen Screen - Final Nasopharyngeal Swab Positive Influenza A Ag Influenza Type B Antigen Screen - Final NEGATIVE INFLUENZA B VIRUS AG REFERENCE RANGE: NEGATIVE Sepsis Event Note - Evaluation Sepsis Screening Result: Possible Severe Sepsis Risk Current Stage of Sepsis: Ruled Out Reason for Ruling Out Sepsis: Viral infection - Focused Exam Vital Signs: Vital Signs Temp Temp Pulse Pulse Pulse Resp BP 06/29/19 13:21 64 06/29/19 12:52 102.7 F H 29 L 32 H 123/48 L 06/29/19 11:02 100.6 F 06/29/19 10:40 100.6 F 06/29/19 08:16 102.2 F H 98 24 H BP Pulse Ox 06/29/19 13:21 06/29/19 12:52 93 L 06/29/19 11:02 06/29/19 10:40 06/29/19 08:16 150/79 H 91 L Date Exam was Performed: 06/29/19 Time Exam was Performed: 15:19 Problem List Initiated/Reviewed/Updated: Yes Orders Last 24hrs: Active Orders 24 hr Category Date Time Status Admission Status [Patient Status] [ADT] Routine ADT 06/29/19 11:53 Active EKG Documentation Completion [RC] ASDIRECTED Care 06/29/19 08:30 Active Oxygen Therapy [RC] PRN Care 06/29/19 13:52 Ordered Up ad Jen [RC] ASDIRECTED Care 06/29/19 13:52 Ordered VTE/DVT Education [RC] PER UNIT ROUTINE Care 06/29/19 13:52 Ordered Vital Signs [RC] Q4H Care 06/29/19 13:52 Ordered Regular Diet [DIET] Diet 06/29/19 Dinner Ordered CBC WITH AUTO DIFF [HEME] AM Lab 06/30/19 05:11 Ordered COMPREHENSIVE METABOLIC PN,CMP [CHEM] AM Lab 06/30/19 05:11 Ordered CULTURE BLOOD [BC] Stat Lab 06/29/19 08:43 Received CULTURE BLOOD [BC] Stat Lab 06/29/19 08:57 Received MAGNESIUM [CHEM] AM Lab 06/30/19 05:11 Ordered ALPRAZolam [Xanax] Med 06/29/19 13:58 Ordered 0.25 mg PO DAILY PRN Acetaminophen [Tylenol] Med 06/29/19 13:52 Ordered 650 mg PO Q4H PRN Aspirin [Nando Chewable Aspirin] Med 06/30/19 09:00 Ordered 81 mg PO DAILY Clopidogrel [Plavix] Med 06/30/19 09:00 Stop Req 75 mg PO DAILY Enoxaparin [Lovenox] Med 06/30/19 09:00 Ordered 40 mg SUBCUT DAILY Finasteride [Proscar] Med 06/30/19 09:00 Ordered 5 mg PO DAILY Ibuprofen [Motrin] Med 06/29/19 13:52 Ordered 600 mg PO Q6H PRN Isosorbide Mononitrate [Imdur] Med 06/29/19 14:00 Ordered 30 mg PO DAILY Lisinopril [Lisinopril] Med 06/29/19 14:00 Ordered 5 mg PO DAILY Metoprolol Tartrate [Metoprolol Tartrate] Med 06/29/19 21:00 Ordered 25 mg PO BID Ondansetron [Zofran] Med 06/29/19 13:52 Ordered 4 mg IV Q4H PRN Oseltamivir [Tamiflu] Med 06/29/19 21:00 Ordered 75 mg PO BID Rosuvastatin [Crestor] Med 06/30/19 09:00 Ordered 20 mg PO DAILY Sodium Chloride 0.9% [Normal Saline] 1,000 ml Med 06/29/19 08:29 Active IV BOLUS Sodium Chloride 0.9% [Saline Flush] Med 06/29/19 08:29 Active 10 ml FLUSH ASDIRECTED PRN Tamsulosin [Flomax] Med 06/29/19 21:00 Ordered 0.4 mg PO BEDTIME amLODIPine Med 06/30/19 09:00 Ordered 2.5 mg PO DAILY Blood Culture x2 Reflex Set [OM.PC] Stat Oth 06/29/19 08:29 Ordered Saline Lock Insert [OM.PC] Stat Oth 06/29/19 08:29 Ordered Severe Sepsis Onset Time [OM.PC] Stat Oth 06/29/19 08:29 Ordered Resuscitation Status Routine Resus Stat 06/29/19 13:49 Ordered EKG 12 Lead [EK] Stat Ther 06/29/19 08:29 Ordered Medication Orders Acetaminophen (Tylenol) 650 mg PO Q4H PRN PRN Reason: Pain (Mild 1-3)/fever Alprazolam (Xanax) 0.25 mg PO DAILY PRN PRN Reason: Anxiety Amlodipine Besylate (Norvasc) 2.5 mg PO DAILY [facility] Aspirin (Halfprin) 81 mg PO DAILY [facility] Clopidogrel Bisulfate (Plavix) 75 mg PO DAILY [facility] Enoxaparin Sodium (Lovenox) 40 mg SUBCUT Q24H [facility] Sodium Chloride (Normal Saline) 1,000 mls @ 150 mls/hr IV BOLUS ONE Stop: 06/29/19 15:08 Last Admin: 06/29/19 09:04 Dose: 150 mls/hr Ibuprofen (Motrin) 600 mg PO Q6H PRN PRN Reason: Pain/Fever Non-Formulary Medication (Finasteride [Proscar]) 5 mg PO DAILY [facility] Non-Formulary Medication (Isosorbide Mononitrate [Imdur]) 30 mg PO DAILY [facility] Non-Formulary Medication (Lisinopril [Lisinopril]) 5 mg PO DAILY [facility] Non-Formulary Medication (Metoprolol Tartrate [Metoprolol Tartrate]) 25 mg PO BID [facility] Non-Formulary Medication (Rosuvastatin [Crestor]) 20 mg PO DAILY [facility] Non-Formulary Medication (Tamsulosin [Flomax]) 0.4 mg PO BEDTIME [facility] Ondansetron HCl (Zofran) 4 mg IV Q4H PRN PRN Reason: Nausea/Vomiting Sodium Chloride (Saline Flush) 10 ml FLUSH ASDIRECTED PRN PRN Reason: Keep Vein Open Last Admin: 06/29/19 09:31 Dose: 10 ml Assessment/Plan Comment:: Assessment * Influenza A * White count 4.93, C-reactive protein 1.2, anion gap 17.5, lactic acid 1.2 * Given Tamiflu 75 mg p.o. in the emergency room. * 1 L normal saline given in the emergency room * Hypoxemia likely secondary to mild exacerbation of emphysema due to influenza * Started on 2 L nasal cannula in the emergency room. * 1/2 pack/day smoker down from a pack per day * Refused nicotine patch * Weakness and falls secondary to infection with influenza A * History of coronary artery disease and emphysema Plan * Admit to medical floor * FiO2 to keep SPO2 greater than 90% * Tamiflu 75 mg twice daily for total of 5 days * Stop antibiotics * D5 one half normal saline at 100 mL/h until taking good oral intake * Activity with standby assist due to increased weakness * Daily CBC and CMP * DuoNeb 4 times daily * CODE STATUS: Full code * VTE prophylaxis with Lovenox * Length of stay 2 to 3 days. - Mortality Measure Prognosis:: Good
[2019-06-29] MEDS ORDERED: Dextrose 5%-0.45% NaCl 1,000 ML IV SCH (14:45)
[2019-06-29] MEDS: Lisinopril 5 MG Tab PO SCH (15:12)
[2019-06-29] MEDS: Isosorbide Mononitrate 30 MG Tab.ER PO SCH (15:12)
[2019-06-29] MEDS ORDERED: Albuterol 0.083% 2.5 MG/3 ML Neb Soln NEB PRN (18:32)
[2019-06-29] MEDS: Metoprolol Tartrate 25 MG Tab PO SCH (20:25)
[2019-06-29] MEDS: Oseltamivir 75 MG Cap PO SCH (20:25)
[2019-06-29] MEDS: Tamsulosin 0.4 MG Cap.ER PO SCH (20:26)
[2019-06-29] MEDS: Dextrose 5%-0.45% NaCl 1,000 ML IV SCH (20:47)
[2019-06-30] MEDS: Albuterol/Ipratropium 3.0-0.5 MG/3 ML Neb Soln NEB SCH ×5 (01:57→20:43)
[2019-06-30] MEDS ORDERED: Magnesium Hydroxide 400 MG/5 ML Susp 30 ML Cup PO ONE (06:00)
[2019-06-30] MEDS: Dextrose 5%-0.45% NaCl 1,000 ML IV SCH (06:09)
--- NOTE | 2019-06-30 07:52 | PCM.PN ---
- General Info Date of Service: 06/30/19 Admission Dx/Problem (Free Text): Admission Diagnosis/Problem Admission Diagnosis/Problem Influenza due to influenza A virus Subjective Update: In to see Guy. Clinically he looks much better than yesterday and he reports he feels much better. He reports he is still weak, but much improved. Cough has improved. Potassium is low today and will be supplemented. Likely discharge tomorrow pending continued improvement. Functional Status: Reports: Pain Controlled, Tolerating Diet, Ambulating, Urinating. Denies: New Symptoms - Review of Systems General: Reports: Weakness (improved). Denies: Fever, Fatigue, Malaise, Chills HEENT: Reports: No Symptoms. Denies: Headaches, Sore Throat Pulmonary: Reports: Cough (improved ). Denies: Shortness of Breath, Pleuritic Chest Pain, Sputum, Wheezing Cardiovascular: Reports: No Symptoms. Denies: Chest Pain, Palpitations, Dyspnea on Exertion, Edema Gastrointestinal: Reports: No Symptoms. Denies: Abdominal Pain, Constipation, Diarrhea, Nausea, Vomiting Genitourinary: Reports: No Symptoms. Denies: Pain Musculoskeletal: Reports: No Symptoms Skin: Reports: No Symptoms. Denies: Cyanosis Neurological: Reports: No Symptoms. Denies: Pre-Existing Deficit, Difficulty Walking, Gait Disturbance Psychiatric: Reports: No Symptoms - Patient Data Vitals - Most Recent: Last Vital Signs Temp 98.1 F 06/30/19 06:12 Pulse 67 06/30/19 04:04 Resp 15 06/30/19 04:04 BP 106/59 L 06/30/19 04:04 Pulse Ox 95 06/30/19 04:04 Weight - Most Recent: 168 lb 6.4 oz I&O - Last 24 Hours: Intake & Output 06/29/19 06/30/19 06/30/19 22:59 06:59 14:59 Intake Total 591 974 Output Total 850 Balance 591 124 Lab Results Last 24 Hours: Laboratory Results - last 24 hr 06/29/19 06/29/19 06/29/19 Range/Units 08:43 08:43 08:43 WBC 4.93 (4.23-9.07) K/mm3 RBC 5.10 (4.63-6.08) M/mm3 Hgb 14.8 D (13.7-17.5) gm/dl Hct 44.6 (40.1-51.0) % MCV 87.5 (79.0-92.2) fl MCH 29.0 (25.7-32.2) pg MCHC 33.2 (32.2-35.5) g/dl RDW Std Deviation 46.5 H (35.1-43.9) fL Plt Count 132 L (163-337) K/mm3 MPV 10.2 (9.4-12.3) fl Neut % (Auto) (34.0-67.9) % Lymph % (Auto) (21.8-53.1) % [place] % (Auto) (5.3-12.2) % Eos % (Auto) (0.8-7.0) Baso % (Auto) (0.1-1.2) % Neut # (Auto) (1.78-5.38) K/mm3 Lymph # (Auto) (1.32-3.57) K/mm3 [place]y # (Auto) (0.30-0.82) K/mm3 Eos # (Auto) (0.04-0.54) K/mm3 Baso # (Auto) (0.01-0.08) K/mm3 Neutrophils % (Manual) 78 H (40-60) % Band Neutrophils % 0 (0-10) % Lymphocytes % (Manual) 13 L (20-40) % Atypical Lymphs % 0 % Monocytes % (Manual) 9 (2-10) % Eosinophils % (Manual) 0 L (0.8-7.0) % Basophils % (Manual) 0 L (0.2-1.2) Platelet Estimate Adequate RBC Morph Comment Normal PT 11.5 (9.7-12.0) SECONDS INR 1.06 Sodium 140 (136-145) mEq/L Potassium 3.5 (3.5-5.1) mEq/L Chloride 103 (98-107) mEq/L Carbon Dioxide 23 (21-32) mEq/L Anion Gap 17.5 H (5-15) BUN 18 (7-18) mg/dL Creatinine 1.0 (0.7-1.3) mg/dL Est Cr Clr Drug Dosing 67.98 mL/min Estimated GFR (MDRD) > 60 (>60) mL/min BUN/Creatinine Ratio 18.0 (14-18) Glucose 116 H (83-115) mg/dL Lactic Acid (0.4-2.0) mmol/L Calcium 8.3 L (8.5-10.1) mg/dL Magnesium (1.8-2.4) mg/dl Total Bilirubin 1.0 (0.2-1.0) mg/dL AST 26 (15-37) U/L ALT 25 (16-63) U/L Alkaline Phosphatase 95 (46-116) U/L C-Reactive Protein 1.2 H* (<1.0) mg/dL Total Protein 7.2 (6.4-8.2) g/dl Albumin 4.1 (3.4-5.0) g/dl Globulin 3.1 gm/dL Albumin/Globulin Ratio 1.3 (1-2) 06/29/19 06/30/19 06/30/19 Range/Units 08:43 05:17 05:17 WBC 6.71 (4.23-9.07) K/mm3 RBC 4.39 L (4.63-6.08) M/mm3 Hgb 12.7 L D (13.7-17.5) gm/dl Hct 38.6 L (40.1-51.0) % MCV 87.9 (79.0-92.2) fl MCH 28.9 (25.7-32.2) pg MCHC 32.9 (32.2-35.5) g/dl RDW Std Deviation 46.5 H (35.1-43.9) fL Plt Count 114 L (163-337) K/mm3 MPV 10.4 (9.4-12.3) fl Neut % (Auto) 84.0 H (34.0-67.9) % Lymph % (Auto) 10.1 L (21.8-53.1) % Posey % (Auto) 5.7 (5.3-12.2) % Eos % (Auto) 0 L (0.8-7.0) Baso % (Auto) 0.1 (0.1-1.2) % Neut # (Auto) 5.63 H (1.78-5.38) K/mm3 Lymph # (Auto) 0.68 L (1.32-3.57) K/mm3 [place]y # (Auto) 0.38 (0.30-0.82) K/mm3 Eos # (Auto) 0.00 L (0.04-0.54) K/mm3 Baso # (Auto) 0.01 (0.01-0.08) K/mm3 Neutrophils % (Manual) (40-60) % Band Neutrophils % (0-10) % Lymphocytes % (Manual) (20-40) % Atypical Lymphs % % Monocytes % (Manual) (2-10) % Eosinophils % (Manual) (0.8-7.0) % Basophils % (Manual) (0.2-1.2) Platelet Estimate RBC Morph Comment PT (9.7-12.0) SECONDS INR Sodium 136 (136-145) mEq/L Potassium 3.0 L (3.5-5.1) mEq/L Chloride 101 (98-107) mEq/L Carbon Dioxide 24 (21-32) mEq/L Anion Gap 14.0 (5-15) BUN 20 H (7-18) mg/dL Creatinine 0.9 (0.7-1.3) mg/dL Est Cr Clr Drug Dosing 75.53 mL/min Estimated GFR (MDRD) > 60 (>60) mL/min BUN/Creatinine Ratio 22.2 H (14-18) Glucose 122 H (83-115) mg/dL Lactic Acid 1.2 (0.4-2.0) mmol/L Calcium 8.3 L (8.5-10.1) mg/dL Magnesium 1.8 (1.8-2.4) mg/dl Total Bilirubin 0.6 (0.2-1.0) mg/dL AST 32 (15-37) U/L ALT 24 (16-63) U/L Alkaline Phosphatase 66 (46-116) U/L C-Reactive Protein (<1.0) mg/dL Total Protein 5.9 L (6.4-8.2) g/dl Albumin 3.2 L (3.4-5.0) g/dl Globulin 2.7 gm/dL Albumin/Globulin Ratio 1.2 (1-2) Romaine Results Last 24 Hours: Microbiology 06/29/19 10:08 Influenza Type A Antigen Screen - Final Nasopharyngeal Swab Positive Influenza A Ag Influenza Type B Antigen Screen - Final NEGATIVE INFLUENZA B VIRUS AG REFERENCE RANGE: NEGATIVE Med Orders - Current: Current Medications Acetaminophen (Tylenol) 650 mg PO Q4H PRN PRN Reason: Pain (Mild 1-3)/fever Last Admin: 06/30/19 04:08 Dose: 650 mg Albuterol (Proventil Neb Soln) 2.5 mg NEB Q2H PRN PRN Reason: Shortness of Breath Last Admin: 06/29/19 18:56 Dose: 2.5 mg Albuterol/Ipratropium (Duoneb 3.0-0.5 Mg/3 Ml) 3 ml NEB Q6HRRT [facility] Last Admin: 06/30/19 02:03 Dose: 3 ml Alprazolam (Xanax) 0.25 mg PO DAILY PRN PRN Reason: Anxiety Amlodipine Besylate (Norvasc) 2.5 mg PO DAILY [facility] Aspirin (Halfprin) 81 mg PO DAILY [facility] Enoxaparin Sodium (Lovenox) 40 mg SUBCUT Q24H [facility] Finasteride (Proscar) 5 mg PO DAILY [facility] Dextrose/Sodium Chloride (Dextrose 5%-1/2 Ns) 1,000 mls @ 50 mls/hr IV ASDIRECTED [facility] Last Admin: 06/30/19 06:09 Dose: 50 mls/hr Ibuprofen (Motrin) 600 mg PO Q6H PRN PRN Reason: Pain/Fever Last Admin: 06/29/19 15:11 Dose: 600 mg Isosorbide Mononitrate (Imdur) 30 mg PO DAILY [facility] Last Admin: 06/29/19 15:12 Dose: 30 mg Lisinopril (Prinivil) 5 mg PO DAILY [facility] Last Admin: 06/29/19 15:12 Dose: 5 mg Metoprolol Tartrate (Lopressor) 25 mg PO BID [facility] Last Admin: 06/29/19 20:25 Dose: 25 mg Ondansetron HCl (Zofran) 4 mg IV Q4H PRN PRN Reason: Nausea/Vomiting Oseltamivir Phosphate (Tamiflu) 75 mg PO BID [facility] Last Admin: 06/29/19 20:25 Dose: 75 mg Rosuvastatin Calcium (Crestor) 20 mg PO DAILY [facility] Sodium Chloride (Saline Flush) 10 ml FLUSH ASDIRECTED PRN PRN Reason: Keep Vein Open Last Admin: 06/29/19 09:31 Dose: 10 ml Tamsulosin HCl (Flomax) 0.4 mg PO BEDTIME [facility] Last Admin: 06/29/19 20:26 Dose: 0.4 mg Discontinued Medications Acetaminophen (Tylenol) 975 mg PO ONETIME ONE Stop: 06/29/19 10:44 Last Admin: 06/29/19 11:02 Dose: 975 mg Clopidogrel Bisulfate (Plavix) 75 mg PO DAILY [facility] Ceftriaxone Sodium 2 gm/ (Sodium Chloride) 100 mls @ 200 mls/hr IV STAT ONE Stop: 06/29/19 08:58 Last Admin: 06/29/19 09:41 Dose: Not Given Sodium Chloride (Normal Saline) 1,000 mls @ 150 mls/hr IV BOLUS ONE Stop: 06/29/19 15:08 Last Admin: 06/29/19 09:04 Dose: 150 mls/hr Ceftriaxone Sodium 2 gm/ (Sodium Chloride) 100 mls @ 200 mls/hr IV STAT ONE Stop: 06/29/19 09:12 Last Admin: 06/29/19 09:14 Dose: 200 mls/hr Dextrose/Sodium Chloride (Dextrose 5%-1/2 Ns) 1,000 mls @ 100 mls/hr IV ASDIRECTED [facility] Last Admin: 06/29/19 15:12 Dose: 100 mls/hr Magnesium Hydroxide (Milk Of Magnesia) 30 ml PO ONETIME ONE Stop: 06/30/19 06:01 Last Admin: 06/30/19 06:09 Dose: 30 ml Oseltamivir Phosphate (Tamiflu) 75 mg PO ONETIME ONE Stop: 06/29/19 10:43 Last Admin: 06/29/19 11:03 Dose: 75 mg - Exam Quality Assessment: DVT Prophylaxis. No: Supplemental Oxygen General: Alert, Oriented, Cooperative, No Acute Distress HEENT: Pupils Equal, Pupils Reactive, EOMI, Mucous Membr. Moist/[place] Neck: Supple, Trachea Midline Lungs: Clear to Auscultation, Normal Respiratory Effort Cardiovascular: Regular Rate, Regular Rhythm GI/Abdominal Exam: Normal Bowel Sounds, Soft, Non-Tender, No Distention, No Abnormal Bruit (Male) Exam: Deferred Back Exam: Normal Inspection, Full Range of Motion Extremities: Normal Inspection, Normal Range of Motion, Non-Tender, No Pedal Edema, Normal Capillary Refill Peripheral Pulses: 2+: Radial (L), Radial (R), Dorsalis Pedis (L), Dorsalis Pedis (R) Skin: Warm, Dry, Intact Neurological: No New Focal Deficit Psy/Mental Status: Alert, Normal Affect, Normal Mood Sepsis Event Note - Evaluation Sepsis Screening Result: No Definite Risk - Focused Exam Vital Signs: Vital Signs Temp Pulse Resp BP Pulse Ox Pulse Ox 06/30/19 06:12 98.1 F 06/30/19 04:08 99.7 F 06/30/19 04:04 99.7 F 67 15 106/59 L 95 06/30/19 02:00 94 L 06/30/19 00:02 98.4 F 58 L 17 122/55 L 98 06/29/19 20:25 62 112/42 L 06/29/19 20:24 98.2 F 62 18 112/42 L 93 L Date Exam was Performed: 06/30/19 Time Exam was Performed: 10:49 - Problem List & Annotations (1) Generalized weakness SNOMED Code(s): 92131766 Code(s): R53.1 - WEAKNESS Status: Acute Priority: High Current Visit: Yes (2) Influenza A SNOMED Code(s): 920088774 Code(s): J10.1 - FLU DUE TO OTH IDENT INFLUENZA VIRUS W OTH RESP MANIFEST Status: Acute Priority: High Current Visit: Yes (3) Hypokalemia SNOMED Code(s): 19319701 Code(s): E87.6 - HYPOKALEMIA Status: Acute Priority: High Current Visit : Yes - Problem List Review Problem List Initiated/Reviewed/Updated: Yes - Plan Plan:: Assessment * Influenza A * White count 4.93, C-reactive protein 1.2, anion gap 17.5, lactic acid 1.2 * Given Tamiflu 75 mg p.o. in the emergency room. * 1 L normal saline given in the emergency room * Afebrile today, negative blood cultures * Hypoxemia likely secondary to mild exacerbation of emphysema due to influenza * Started on 2 L nasal cannula in the emergency room -> discontinued * 1/2 pack/day smoker down from a pack per day * Refusing nicotine patch * Weakness and falls secondary to infection with influenza A -> improved * History of coronary artery disease and emphysema * Hypokalemia with potassium of 3.0 Plan * Admit to medical floor * FiO2 to keep SPO2 greater than 90% * Tamiflu 75 mg twice daily for total of 5 days * Stop antibiotics * D5 one half normal saline at 100 mL/h until taking good oral intake -> discontinue this afternoon * Activity with standby assist due to increased weakness * Daily CBC and CMP * Encourage ambulation * Supplement potassium * DuoNeb 4 times daily * CODE STATUS: Full code * VTE prophylaxis with Lovenox * Length of stay: Likely discharge tomorrow.
[2019-06-30] MEDS: Lisinopril 5 MG Tab PO SCH (08:37)
[2019-06-30] MEDS: Aspirin 81 MG Tab.EC PO SCH (08:39)
[2019-06-30] MEDS: Metoprolol Tartrate 25 MG Tab PO SCH ×2 (08:39→20:33)
[2019-06-30] MEDS: Rosuvastatin 10 MG Tab PO SCH (08:40)
[2019-06-30] MEDS: Finasteride 5 MG Tab PO SCH (08:40)
[2019-06-30] MEDS: amLODIPine 2.5 MG Tab PO SCH (08:40)
[2019-06-30] MEDS: Oseltamivir 75 MG Cap PO SCH ×2 (08:41→20:33)
[2019-06-30] MEDS ORDERED: Clopidogrel 75 MG Tab PO SCH (09:00)
[2019-06-30] MEDS: Potassium Chloride 10 MEQ in Premix Bag 1 BAG IV SCH ×6 (10:04→15:19)
[2019-06-30] MEDS: Isosorbide Mononitrate 30 MG Tab.ER PO SCH (10:05)
[2019-06-30] MEDS: Clopidogrel 75 MG Tab PO SCH (11:12)
[2019-06-30] MEDS ORDERED: Enoxaparin 40 MG/0.4 ML Syringe SUBCUT SCH (15:00)
[2019-06-30] MEDS ORDERED: Polyethylene Glycol 3350 Powder 17 GM Packet PO PRN (16:32)
[2019-06-30] MEDS: Tamsulosin 0.4 MG Cap.ER PO SCH (20:33)
[2019-07-01] MEDS: Albuterol/Ipratropium 3.0-0.5 MG/3 ML Neb Soln NEB SCH ×2 (03:05→08:24)
[2019-07-01] MEDS: amLODIPine 2.5 MG Tab PO SCH (08:40)
[2019-07-01] MEDS: Rosuvastatin 10 MG Tab PO SCH (08:40)
[2019-07-01] MEDS: Aspirin 81 MG Tab.EC PO SCH (08:41)
[2019-07-01] MEDS: Finasteride 5 MG Tab PO SCH (08:41)
[2019-07-01] MEDS: Isosorbide Mononitrate 30 MG Tab.ER PO SCH (08:41)
[2019-07-01] MEDS: Oseltamivir 75 MG Cap PO SCH (08:41)
[2019-07-01] MEDS: Lisinopril 5 MG Tab PO SCH (08:41)
[2019-07-01] MEDS: Clopidogrel 75 MG Tab PO SCH (08:41)
[2019-07-01] MEDS: Metoprolol Tartrate 25 MG Tab PO SCH (08:42)
--- NOTE | 2019-07-01 11:57 | PCM.DCSUM1 ---
Discharge Summary - Hospital Course HPI Initial Comments: 74-year-old male with history of coronary artery disease and emphysema (found on chest x-ray, but no official diagnosis of COPD) presents to the emergency room with fever, weakness, falls, vomiting, and cough. Patient states that yesterday morning he did develop a cough and by midnight he fell out of bed because he was dizzy. Patient then started vomiting and over the morning became progressively weaker. Patient states he did have a fever of 102 last night at 2100 hrs. patient also stated he has a headache that is worse with coughing but no muscle aches. He is fatigued. He has 3 stents with the first stent being in 2002 and last had a couple of years ago. He does smoke approximately 1/2 pack/day but refuses a patch at this time. In the emergency room patient was found to be hypoxemic and is currently on 2 L nasal cannula. Influenza A swab was positive. Chest x-ray showed no significant change or acute process. Labs: WBC 4.93, hemoglobin 14.8, platelets 132, sodium 140, potassium 3.5, anion gap 17.5, BUN 18, creatinine 1.0, glucose 116, C-reactive protein 1.2, lactic acid 1.2. ECG: Ventricular rate of 98 bpm with atrial premature complexes. Right bundle branch block with left anterior fascicular block. No significant change from October 06, 2018. In the emergency room patient was given Tamiflu 75 mg, bolus of IV fluid, and ceftriaxone 2 g. He was also given Tylenol for fever. He was then transferred to the floor. Diagnosis: Stroke: No - Discharge Data Discharge Date: 07/01/19 Discharge Disposition: Home, Self-Care 01 Condition: Good - Referral to Home Health Primary Care Physician: Christopher Francois MD - Patient Summary/Data Hospital Course: Patient admitted for IV fluids and secondary to weakness with falls. Patient had a significant improvement over the last day and a half and is afebrile. He is tolerating his diet, able to ambulate in the halls, and tolerating Tamiflu. Patient is ready for discharge to follow-up with his primary care provider. - Patient Instructions Diet: Heart Healthy Diet Activity: As Tolerated Driving: May Drive Today Showering/Bathing: May Shower Other/Special Instructions: Take the entire course of Tamiflu. Follow-up with your primary care provider next week. - Discharge Plan *PRESCRIPTION DRUG MONITORING PROGRAM REVIEWED*: No *COPY OF PRESCRIPTION DRUG MONITORING REPORT IN PATIENT JODI: No Prescriptions/Med Rec: Oseltamivir [Tamiflu] 75 mg PO BID #6 cap Home Medications: Home Meds Finasteride [Proscar] 5 mg PO DAILY 05/04/16 [History] Lisinopril 5 mg PO DAILY 05/04/16 [History] Tamsulosin [Flomax] 0.4 mg PO BEDTIME 05/04/16 [History] Aspirin [Nando Chewable Aspirin] 81 mg PO DAILY 01/14/17 [History] ALPRAZolam [Xanax] 0.25 mg PO DAILY PRN 10/04/18 [History] Clopidogrel [Plavix] 75 mg PO DAILY 10/04/18 [History] Isosorbide Mononitrate [Imdur] 30 mg PO DAILY 10/04/18 [History] Metoprolol Tartrate 25 mg PO BID 10/04/18 [History] Rosuvastatin [Crestor] 20 mg PO DAILY 10/04/18 [History] amLODIPine Besylate [Norvasc] 2.5 mg PO DAILY 10/04/18 [History] Oseltamivir [Tamiflu] 75 mg PO BID #6 cap 07/01/19 [Rx] Patient Handouts: Influenza, Adult, [id number] Forms: ED Department Discharge Referrals: Christopher Francois MD [Primary Care Provider] - - Discharge Summary/Plan Comment DC Time >30 min.: Yes Discharge Summary/Plan Comment: Tamiflu prescribed 75 mg twice daily for another 3 days. Follow-up with primary care provider next week. - General Info Date of Service: 07/01/19 Admission Dx/Problem (Free Text: Admission Diagnosis/Problem Admission Diagnosis/Problem Influenza due to influenza A virus Subjective Update: Well, ambulating the halls, and tolerating p.o. Functional Status: Reports: Pain Controlled - Review of Systems General: Reports: No Symptoms HEENT: Reports: No Symptoms Pulmonary: Reports: No Symptoms Cardiovascular: Reports: No Symptoms Gastrointestinal: Reports: No Symptoms - Patient Data Vitals - Most Recent: Last Vital Signs Temp 98.2 F 07/01/19 07:39 Pulse 68 07/01/19 08:42 Resp 16 07/01/19 07:39 BP 111/75 12/25/19 08:42 Pulse Ox 97 07/01/19 08:24 Weight - Most Recent: 170 lb 11.2 oz I&O - Last 24 hours: Intake & Output 06/30/19 07/01/19 07/01/19 22:59 06:59 14:59 Intake Total 1770 300 120 Output Total 900 1150 Balance 870 -850 120 Lab Results - Last 24 hrs: Laboratory Results - last 24 hr 07/01/19 07/01/19 Range/Units 05:28 05:28 WBC 4.39 (4.23-9.07) K/mm3 RBC 4.45 L (4.63-6.08) M/mm3 Hgb 13.0 L (13.7-17.5) gm/dl Hct 39.1 L (40.1-51.0) % MCV 87.9 (79.0-92.2) fl MCH 29.2 (25.7-32.2) pg MCHC 33.2 (32.2-35.5) g/dl RDW Std Deviation 46.6 H (35.1-43.9) fL Plt Count 121 L (163-337) K/mm3 MPV 10.3 (9.4-12.3) fl Neut % (Auto) 61.0 (34.0-67.9) % Lymph % (Auto) 28.5 (21.8-53.1) % Coffee % (Auto) 8.4 (5.3-12.2) % Eos % (Auto) 1.4 (0.8-7.0) Baso % (Auto) 0.5 (0.1-1.2) % Neut # (Auto) 2.68 (1.78-5.38) K/mm3 Lymph # (Auto) 1.25 L (1.32-3.57) K/mm3 Coffee # (Auto) 0.37 (0.30-0.82) K/mm3 Eos # (Auto) 0.06 (0.04-0.54) K/mm3 Baso # (Auto) 0.02 (0.01-0.08) K/mm3 Sodium 137 (136-145) mEq/L Potassium 3.5 (3.5-5.1) mEq/L Chloride 103 (98-107) mEq/L Carbon Dioxide 26 (21-32) mEq/L Anion Gap 11.5 (5-15) BUN 14 (7-18) mg/dL Creatinine 1.0 (0.7-1.3) mg/dL Est Cr Clr Drug Dosing 67.98 mL/min Estimated GFR (MDRD) > 60 (>60) mL/min BUN/Creatinine Ratio 14.0 (14-18) Glucose 109 (83-115) mg/dL Calcium 8.2 L (8.5-10.1) mg/dL Magnesium 1.9 (1.8-2.4) mg/dl QUINN Results - Last 24 hrs: Microbiology 06/29/19 08:43 Aerobic Blood Culture - Preliminary Blood - Venous - Lab Draw NO GROWTH AFTER 2 DAYS Anaerobic Blood Culture - Preliminary NO GROWTH AFTER 2 DAYS 06/29/19 08:57 Aerobic Blood Culture - Preliminary Blood - Venous NO GROWTH AFTER 2 DAYS Anaerobic Blood Culture - Preliminary NO GROWTH AFTER 2 DAYS Med Orders - Current: Current Medications Acetaminophen (Tylenol) 650 mg PO Q4H PRN PRN Reason: Pain (Mild 1-3)/fever Last Admin: 06/30/19 04:08 Dose: 650 mg Albuterol (Proventil Neb Soln) 2.5 mg NEB Q2H PRN PRN Reason: Shortness of Breath Last Admin: 06/29/19 18:56 Dose: 2.5 mg Albuterol/Ipratropium (Duoneb 3.0-0.5 Mg/3 Ml) 3 ml NEB Q6HRRT [facility] Last Admin: 07/01/19 08:24 Dose: 3 ml Alprazolam (Xanax) 0.25 mg PO DAILY PRN PRN Reason: Anxiety Amlodipine Besylate (Norvasc) 2.5 mg PO DAILY [facility] Last Admin: 07/01/19 08:40 Dose: 2.5 mg Aspirin (Halfprin) 81 mg PO DAILY [facility] Last Admin: 07/01/19 08:41 Dose: 81 mg Clopidogrel Bisulfate (Plavix) 75 mg PO DAILY [facility] Last Admin: 07/01/19 08:41 Dose: 75 mg Enoxaparin Sodium (Lovenox) 40 mg SUBCUT Q24H [facility] Last Admin: 06/30/19 15:20 Dose: 40 mg Finasteride (Proscar) 5 mg PO DAILY [facility] Last Admin: 07/01/19 08:41 Dose: 5 mg Ibuprofen (Motrin) 600 mg PO Q6H PRN PRN Reason: Pain/Fever Last Admin: 06/29/19 15:11 Dose: 600 mg Isosorbide Mononitrate (Imdur) 30 mg PO DAILY [facility] Last Admin: 07/01/19 08:41 Dose: 30 mg Lisinopril (Prinivil) 5 mg PO DAILY [facility] Last Admin: 07/01/19 08:41 Dose: 5 mg Metoprolol Tartrate (Lopressor) 25 mg PO BID [facility] Last Admin: 07/01/19 08:42 Dose: 25 mg Ondansetron HCl (Zofran) 4 mg IV Q4H PRN PRN Reason: Nausea/Vomiting Oseltamivir Phosphate (Tamiflu) 75 mg PO BID [facility] Last Admin: 07/01/19 08:41 Dose: 75 mg Polyethylene Glycol (Miralax) 17 gm PO BEDTIME PRN PRN Reason: Constipation Rosuvastatin Calcium (Crestor) 20 mg PO DAILY [facility] Last Admin: 07/01/19 08:40 Dose: 20 mg Sodium Chloride (Saline Flush) 10 ml FLUSH ASDIRECTED PRN PRN Reason: Keep Vein Open Last Admin: 06/29/19 09:31 Dose: 10 ml Tamsulosin HCl (Flomax) 0.4 mg PO BEDTIME [facility] Last Admin: 06/30/19 20:33 Dose: 0.4 mg Discontinued Medications Acetaminophen (Tylenol) 975 mg PO ONETIME ONE Stop: 06/29/19 10:44 Last Admin: 06/29/19 11:02 Dose: 975 mg Clopidogrel Bisulfate (Plavix) 75 mg PO DAILY [facility] Ceftriaxone Sodium 2 gm/ (Sodium Chloride) 100 mls @ 200 mls/hr IV STAT ONE Stop: 06/29/19 08:58 Last Admin: 06/29/19 09:41 Dose: Not Given Sodium Chloride (Normal Saline) 1,000 mls @ 150 mls/hr IV BOLUS ONE Stop: 06/29/19 15:08 Last Admin: 06/29/19 09:04 Dose: 150 mls/hr Ceftriaxone Sodium 2 gm/ (Sodium Chloride) 100 mls @ 200 mls/hr IV STAT ONE Stop: 06/29/19 09:12 Last Admin: 06/29/19 09:14 Dose: 200 mls/hr Dextrose/Sodium Chloride (Dextrose 5%-1/2 Ns) 1,000 mls @ 100 mls/hr IV ASDIRECTED [facility] Last Admin: 06/29/19 15:12 Dose: 100 mls/hr Dextrose/Sodium Chloride (Dextrose 5%-1/2 Ns) 1,000 mls @ 50 mls/hr IV ASDIRECTED [facility] Stop: 06/30/19 18:00 Last Admin: 06/30/19 06:09 Dose: 50 mls/hr Potassium Chloride 10 meq/ (Premix) 100 mls @ 100 mls/hr IV Q1H [facility] Stop: 06/30/19 14:29 Last Admin: 06/30/19 15:19 Dose: 100 mls/hr Magnesium Hydroxide (Milk Of Magnesia) 30 ml PO ONETIME ONE Stop: 06/30/19 06:01 Last Admin: 06/30/19 06:09 Dose: 30 ml Oseltamivir Phosphate (Tamiflu) 75 mg PO ONETIME ONE Stop: 06/29/19 10:43 Last Admin: 06/29/19 11:03 Dose: 75 mg - Exam General: Reports: Alert, Oriented HEENT: Reports: Pupils Equal, EOMI, Mucous Membr. Moist/[place] Neck: Reports: Supple Lungs: Reports: Clear to Auscultation, Normal Respiratory Effort Cardiovascular: Reports: Regular Rate, Regular Rhythm GI/Abdominal Exam: Normal Bowel Sounds, Soft, Non-Tender, No Distention Extremities: Normal Inspection, Normal Range of Motion, Non-Tender, No Pedal Edema Skin: Reports: Warm, Dry, Intact Psy/Mental Status: Reports: Alert, Normal Affect, Normal Mood
[2019-07-01 12:20] VITALS: BP 136/69; PULSE 59
== END 2019-07-01 12:45 | disposition home or self-care (01) | DRG 195 ==
LOC: JD.ED 08:06 → JD.MS 11:53
PROVIDERS: ADMIT Family Medicine; ATTEND Family Medicine
DX: J09.X2 Influenza due to identified novel influenza A virus with other respiratory manifestations (principal); R53.1 Weakness; H54.7 Unspecified visual loss; J10.1 Influenza due to other identified influenza virus with other respiratory manifestations; I10 Essential (primary) hypertension; J43.9 Emphysema, unspecified; N40.0 Benign prostatic hyperplasia without lower urinary tract symptoms; Z95.5 Presence of coronary angioplasty implant and graft; F17.210 Nicotine dependence, cigarettes, uncomplicated; Z79.02 Long term (current) use of antithrombotics/antiplatelets; I25.10 Atherosclerotic heart disease of native coronary artery without angina pectoris; E87.6 Hypokalemia; E78.00 Pure hypercholesterolemia, unspecified; F17.200 Nicotine dependence, unspecified, uncomplicated; Z91.018 Allergy to other foods; Z79.82 Long term (current) use of aspirin; Z79.899 Other long term (current) drug therapy
CPT/HCPCS: 36415; 71046; 80053; 83605; 85007; 85027; 85610; 86140; 87040 ×2; 87804 ×2; 93005; A9270 ×2; J0696; J7030; J7050; 80048; 83735; 85025; 94640; 94761; 96361; 96365; 99285-25; J1650; J3480; J7042; J7620-GY

== ENCOUNTER 2020-04-28 07:35 | Day surgery (SDC) | payer MEDICARE, BC ==
[~2020-04-28 07:35] MED LIST: Cefuroxime 10 MG/ML SYRINGE EYELF SCH; Lidocaine 1% PF 2 ML SDV INJECT SCH; Pilocarpine 4% Ophth Soln 15 ML Bot EYELF SCH
[2020-04-28] MEDS: Polymyxin B/Trimethoprim 10 ML Bottle EYELF SCH ×3 (08:00→10:25)
--- NOTE | 2020-04-28 08:02 | PCM.PREANE ---
Preanesthetic Assessment - Procedure Proposed Procedure: Left Eye Cataract Extraction with IOL - Anesthesia/Transfusion/Family Hx Anesthesia History: Prior Anesthesia Reaction Family History of Anesthesia Reaction: No Transfusion History: No Prior Transfusion(s) - Review of Systems General: No Symptoms Pulmonary: Cough, Other (Smoker 1/2 ppd or a few less, occasional cough) Cardiovascular: Other ([place] with history of stents x 3 more than 10 years ago. Follows yearly with Cardiology from [facility]. ) Gastrointestinal: No Symptoms Neurological: No Symptoms Other: Reports: Easy Bleeding, Easy Bruising (Anticoagulated with Plavix daily due to cardiac stents. ) - Physical Assessment NPO Status Date: 04/27/20 NPO Status Time: 19:00 Weight: 90.718 kg ASA Class: 2 Mental Status: Alert & Oriented x3 Airway Class: Mallampati = 2 Dentition: Reports: Missing Tooth/Teeth, Caries Thyro-Mental Finger Breadths: 3 Mouth Opening Finger Breadths: 3 ROM/Head Extension: Full Lungs: Clear to Auscultation, Normal Respiratory Effort, Decreased Breath Sounds Cardiovascular: Regular Rate, Regular Rhythm - Allergies Allergies/Adverse Reactions: Allergies Allergy/AdvReac Type Severity Reaction Status Date / Time orange juice Allergy Itching Verified 04/27/20 15:23 - Anesthesia Plan Pre-Op Medication Ordered: Beta Saba Beta Saba: Metoprolol Med Last Dose Date: 04/28/20 Med Last Dose Time: 06:30 - Acknowledgements Anesthesia Type Planned: MAC Pt an Appropriate Candidate for the Planned Anesthesia: Yes Alternatives and Risks of Anesthesia Discussed w Pt/Guardian: Yes Pt/Guardian Understands and Agrees with Anesthesia Plan: Yes PreAnesthesia Questionnaire HEENT History: Reports: Impaired Vision, Other (See Below) Other HEENT History: we3ars glasses Cardiovascular History: Reports: CAD, High Cholesterol, Hypertension Respiratory History: Reports: Pneumonia, Recurrent Gastrointestinal History: Reports: Colon Polyp, GI Bleed, Other (See Below) Other Gastrointestinal History: Diverticulitis Genitourinary History: Reports: BPH Musculoskeletal History: Reports: Arthritis, Other (See Below) Other Musculoskeletal History: both shoulders are "bad" Oncologic (Cancer) History: Reports: None - Infectious Disease History Infectious Disease History: Reports: Influenza - Past Surgical History HEENT Surgical History: Reports: None Cardiovascular Surgical History: Reports: Coronary Artery Stent GI Surgical History: Reports: None Male Surgical History: Reports: None - HOME MEDS Home Medications: Home Meds Finasteride [Proscar] 5 mg PO DAILY 05/04/16 [History] Lisinopril 5 mg PO DAILY 05/04/16 [History] Tamsulosin [Flomax] 0.4 mg PO BEDTIME 05/04/16 [History] ALPRAZolam [Xanax] 0.25 mg PO DAILY PRN 10/04/18 [History] Clopidogrel [Plavix] 75 mg PO DAILY 10/04/18 [History] Isosorbide Mononitrate [Imdur] 30 mg PO DAILY 10/04/18 [History] Metoprolol Tartrate 25 mg PO BID 10/04/18 [History] Rosuvastatin [Crestor] 20 mg PO DAILY 10/04/18 [History] amLODIPine Besylate [Norvasc] 2.5 mg PO DAILY 10/04/18 [History] - CURRENT (IN HOUSE) MEDS Current Meds: Current Medications Brimonidine Tartrate (Alphagan 0.2% Oph Soln) 0 ml EYELF ASDIRECTED MAIKEL Stop: 04/28/20 18:00 Cefuroxime Sodium (Zinacef) 0 mg EYELF ASDIRECTED MAIKEL Stop: 04/29/20 18:00 Lidocaine HCl (Xylocaine-Mpf 1%) 0 ml INJECT ASDIRECTED MAIKEL Stop: 04/28/20 18:00 Phenylephrine HCl (Peng-Synephrine 2.5% Ophth Soln) 0 ml EYELF ASDIRECTED MAIKEL Stop: 04/28/20 18:00 Pilocarpine HCl (Pilocar 4% Ophth Soln) 0 ml EYELF ASDIRECTED MAIKEL Stop: 04/28/20 18:00 Polymyxin/Trimethoprim Sulfate (Polytrim Ophth Soln) 0 ml EYELF ASDIRECTED MAIKEL Stop: 04/28/20 18:00 Tetracaine HCl (Tetracaine 0.5% Steri-Unit Taya) 0 ml EYEBOTH ASDIRECTED MAIKEL Stop: 04/28/20 18:00 Tropicamide (Mydriacyl 1% Oph Soln) 0 ml EYELF ASDIRECTED MAIKEL Stop: 04/28/20 18:00
[2020-04-28] MEDS: Brimonidine 0.2% Ophth Soln 5 ML Bottle EYELF SCH ×3 (08:05→10:25)
[2020-04-28] MEDS: Phenylephrine 2.5% Ophth Soln 2 ML Bot EYELF SCH ×5 (08:10→10:02)
[2020-04-28] MEDS: Tropicamide 1% Ophth Soln 15 ML Bottle EYELF SCH ×4 (08:15→09:28)
[2020-04-28] MEDS: Tetracaine HCl/PF 0.5% 4 ML Bottle EYEBOTH SCH ×4 (09:50→10:08)
--- NOTE | 2020-04-28 10:28 | PCM48HPAN ---
Post Anesthesia Note - EVALUATION WITHIN 48HRS OF ANESTHETIC Vital Signs in Normal Range: Yes Patient Participated in Evaluation: Yes Respiratory Function Stable: Yes Airway Patent: Yes Cardiovascular Function Stable: Yes Hydration Status Stable: Yes Pain Control Satisfactory: Yes Nausea and Vomiting Control Satisfactory: Yes Mental Status Recovered: Yes Vital Signs: Last Vital Signs Temp 36.7 C 04/28/20 07:35 Pulse 57 L 04/28/20 07:35 Resp 16 04/28/20 07:35 BP 127/73 04/28/20 07:35 Pulse Ox 98 04/28/20 07:35
[2020-04-28 11:11] VITALS: BP 129/74; PULSE 52
== END 2020-04-28 10:35 | disposition home or self-care (01) ==
LOC: JD.SDS 07:35
PROVIDERS: ATTEND Ophthalmology
DX: H25.813 Combined forms of age-related cataract, bilateral (principal); H21.81 Floppy iris syndrome; H16.103 Unspecified superficial keratitis, bilateral; H16.223 Keratoconjunctivitis sicca, not specified as Sjogren's, bilateral; H21.42 Pupillary membranes, left eye; Z98.890 Other specified postprocedural states; F17.200 Nicotine dependence, unspecified, uncomplicated; I25.10 Atherosclerotic heart disease of native coronary artery without angina pectoris; E78.00 Pure hypercholesterolemia, unspecified; I10 Essential (primary) hypertension; Z79.899 Other long term (current) drug therapy; Z79.82 Long term (current) use of aspirin; Z91.018 Allergy to other foods; Z95.5 Presence of coronary angioplasty implant and graft
CPT/HCPCS: 66982; J0697; J2001; C1780

== ENCOUNTER 2020-05-24 11:18 | Day surgery (SDC) | payer MEDICARE, BC ==
[~2020-05-24 11:18] MED LIST changes: -Cefuroxime 10 MG/ML SYRINGE EYELF SCH; +Cefuroxime 10 MG/ML SYRINGE EYERT SCH; -Pilocarpine 4% Ophth Soln 15 ML Bot EYELF SCH; +Pilocarpine 4% Ophth Soln 15 ML Bot EYERT SCH
[2020-05-24] MEDS: Polymyxin B/Trimethoprim 10 ML Bottle EYERT SCH ×3 (11:22→12:42)
[2020-05-24] MEDS: Brimonidine 0.2% Ophth Soln 5 ML Bottle EYERT SCH ×3 (11:26→12:42)
[2020-05-24] MEDS: Phenylephrine 2.5% Ophth Soln 2 ML Bot EYERT SCH ×5 (11:28→12:17)
[2020-05-24] MEDS: Tropicamide 1% Ophth Soln 15 ML Bottle EYERT SCH ×4 (11:30→12:01)
--- NOTE | 2020-05-24 11:40 | PCM.PREANE ---
Preanesthetic Assessment - Procedure Proposed Procedure: Rt eye cataract extraction with IOL - Anesthesia/Transfusion/Family Hx Anesthesia History: Prior Anesthesia Reaction Transfusion History: No Prior Transfusion(s) - Review of Systems General: No Symptoms Pulmonary: No Symptoms, Cough, Other (smoker, occasional cough) Cardiovascular: Other (hx of [place] + stents > 10 yes ago.) Gastrointestinal: No Symptoms Neurological: No Symptoms Other: Reports: Easy Bleeding, Easy Bruising (On anticoags due to stents) - Physical Assessment NPO Status Date: 05/23/20 NPO Status Time: 17:30 Vital Signs: Last Vital Signs Temp 97.6 F 05/24/20 11:20 Pulse 52 L 05/24/20 11:20 Resp 16 05/24/20 11:20 BP 114/61 05/24/20 11:20 Pulse Ox 99 05/24/20 11:20 Height: 1.8 m Weight: 72.575 kg Mental Status: Alert & Oriented x3 Airway Class: Mallampati = 2 Dentition: Reports: Dentures, Edentulous Thyro-Mental Finger Breadths: 3 Mouth Opening Finger Breadths: 3 ROM/Head Extension: Full Lungs: Clear to Auscultation, Normal Respiratory Effort, Decreased Breath Sounds Cardiovascular: Regular Rate, Regular Rhythm - Allergies Allergies/Adverse Reactions: Allergies Allergy/AdvReac Type Severity Reaction Status Date / Time orange juice Allergy Itching Verified 05/23/20 15:57 - Anesthesia Plan Beta Saba: Metoprolol Med Last Dose Date: 05/24/20 Med Last Dose Time: 06:30 - Acknowledgements Anesthesia Type Planned: MAC Pt an Appropriate Candidate for the Planned Anesthesia: Yes Alternatives and Risks of Anesthesia Discussed w Pt/Guardian: Yes Pt/Guardian Understands and Agrees with Anesthesia Plan: Yes PreAnesthesia Questionnaire HEENT History: Reports: Impaired Vision, Other (See Below) Other HEENT History: we3ars glasses Cardiovascular History: Reports: CAD, High Cholesterol, Hypertension Respiratory History: Reports: Pneumonia, Recurrent Gastrointestinal History: Reports: Colon Polyp, GI Bleed, Other (See Below) Other Gastrointestinal History: Diverticulitis Genitourinary History: Reports: BPH Musculoskeletal History: Reports: Arthritis, Other (See Below) Other Musculoskeletal History: both shoulders are "bad" Oncologic (Cancer) History: Reports: None - Infectious Disease History Infectious Disease History: Reports: Influenza - Past Surgical History HEENT Surgical History: Reports: None Cardiovascular Surgical History: Reports: Coronary Artery Stent GI Surgical History: Reports: None Male Surgical History: Reports: None - HOME MEDS Home Medications: Home Meds Finasteride [Proscar] 5 mg PO DAILY 05/04/16 [History] Lisinopril 5 mg PO DAILY 05/04/16 [History] Tamsulosin [Flomax] 0.4 mg PO BEDTIME 05/04/16 [History] ALPRAZolam [Xanax] 0.25 mg PO DAILY PRN 10/04/18 [History] Clopidogrel [Plavix] 75 mg PO DAILY 10/04/18 [History] Isosorbide Mononitrate [Imdur] 30 mg PO DAILY 10/04/18 [History] Metoprolol Tartrate 25 mg PO BID 10/04/18 [History] Rosuvastatin [Crestor] 20 mg PO DAILY 10/04/18 [History] amLODIPine Besylate [Norvasc] 2.5 mg PO DAILY 10/04/18 [History] - CURRENT (IN HOUSE) MEDS Current Meds: Current Medications Brimonidine Tartrate (Alphagan 0.2% Ophth Soln) 0 ml EYERT ASDIRECTED MAIKEL Stop: 05/24/20 18:00 Last Admin: 05/24/20 11:26 Dose: 1 drop Documented by: Cefuroxime Sodium (Zinacef) 0 mg EYERT ASDIRECTED MAIKEL Stop: 05/24/20 18:00 Lidocaine HCl (Xylocaine-Mpf 1%) 0 ml INJECT ASDIRECTED MAIKEL Stop: 05/24/20 18:00 Phenylephrine HCl (Peng-Synephrine 2.5% Ophth Soln) 0 ml EYERT ASDIRECTED MAIKEL Stop: 05/24/20 18:00 Last Admin: 05/24/20 11:32 Dose: 1 drop Documented by: Pilocarpine HCl (Pilocar 4% Ophth Soln) 0 ml EYERT ASDIRECTED MAIKEL Stop: 05/24/20 18:00 Polymyxin/Trimethoprim Sulfate (Polytrim Ophth Soln) 0 ml EYERT ASDIRECTED MAIKEL Stop: 05/24/20 18:00 Last Admin: 05/24/20 11:22 Dose: 1 drop Documented by: Tetracaine HCl (Tetracaine 0.5% Steri-Unit Taya) 0 ml EYEBOTH ASDIRECTED MAIKEL Stop: 05/24/20 18:00 Tropicamide (Mydriacyl 1% Ophth Soln) 0 ml EYERT ASDIRECTED MAIKEL Stop: 05/24/20 18:00 Last Admin: 05/24/20 11:34 Dose: 1 drop Documented by:
[2020-05-24] MEDS: Tetracaine HCl/PF 0.5% 4 ML Bottle EYEBOTH SCH ×4 (12:04→12:27)
--- NOTE | 2020-05-24 12:40 | PCM48HPAN ---
Post Anesthesia Note - EVALUATION WITHIN 48HRS OF ANESTHETIC Vital Signs in Normal Range: Yes Patient Participated in Evaluation: Yes Respiratory Function Stable: Yes Airway Patent: Yes Cardiovascular Function Stable: Yes Hydration Status Stable: Yes Pain Control Satisfactory: Yes Nausea and Vomiting Control Satisfactory: Yes Mental Status Recovered: Yes Vital Signs: Last Vital Signs Temp 97.6 F 05/24/20 11:20 Pulse 52 L 05/24/20 11:20 Resp 16 05/24/20 11:20 BP 114/61 05/24/20 11:20 Pulse Ox 99 05/24/20 11:20 Post Case VSs 131/59, 62, 97% RR10
[2020-05-24 13:02] VITALS: BP 111/59; PULSE 57
== END 2020-05-24 12:55 | disposition home or self-care (01) ==
LOC: JD.SDS 11:18
PROVIDERS: ATTEND Ophthalmology
DX: H25.811 Combined forms of age-related cataract, right eye (principal); H16.103 Unspecified superficial keratitis, bilateral; H16.223 Keratoconjunctivitis sicca, not specified as Sjogren's, bilateral; H02.834 Dermatochalasis of left upper eyelid; H02.831 Dermatochalasis of right upper eyelid; H17.812 Minor opacity of cornea, left eye; H21.81 Floppy iris syndrome; F17.200 Nicotine dependence, unspecified, uncomplicated; Z98.890 Other specified postprocedural states; Z96.1 Presence of intraocular lens
CPT/HCPCS: 66982; C1780; J0697; J2001

== ENCOUNTER → 2021-10-25 | Day surgery (SDC) | payer MEDICARE, BC ==
[~2021-10-25] MED LIST changes: +Acetaminophen 325 MG Tab PO SCH; +Albuterol 0.083% 2.5 MG/3 ML Neb Soln NEB SCH; -Cefuroxime 10 MG/ML SYRINGE EYERT SCH; +EPINEPHrine 1 MG/ML SDV ONE; +Lactated Ringers 0 ML ONE; +Lactated Ringers 1,000 ML IV SCH; -Lidocaine 1% PF 2 ML SDV INJECT SCH; +Lidocaine 1%/Sod Bicarbonate in NS 8.4% 1 ML Syringe IDERM PRN; +Morphine 8 MG, EPINEPHrine 0.3 MG, Cefuroxime 750 MG, Ketorolac 30 MG, Sodium Chloride ... PRN; -Pilocarpine 4% Ophth Soln 15 ML Bot EYERT SCH; +Pregabalin 25 MG Cap PO SCH; +Propofol 200 MG/20 ML SDV ONE; +Ropivacaine 0.5% 5 MG/ML 30 ML SDV ONE; +Sodium Chloride 0.9% 10 ML Syringe FLUSH PRN; +Sodium Chloride 0.9% 10 ML Syringe FLUSH SCH; +Vancomycin 1 GM SDV ONE; +ceFAZolin 1 GM Vial ONE; +fentaNYL 100 MCG/2 ML SDV ONE; +oxyCODONE ER 10 MG TAB.ER PO SCH
[2021-10-25 08:30] VITALS: BP 111/72; PULSE 78
== END | disposition home or self-care (01) ==
LOC: JD.SDS 07:57
PROVIDERS: ATTEND Orthopaedic Surgery
DX: I49.3 Ventricular premature depolarization (principal); Z53.09 Procedure and treatment not carried out because of other contraindication; F41.9 Anxiety disorder, unspecified; Z98.890 Other specified postprocedural states; F17.210 Nicotine dependence, cigarettes, uncomplicated; Z79.899 Other long term (current) drug therapy
CPT/HCPCS: 36415; 80053; A9270; J3010; J3370; J7120; J0171; J0690; J2704; J2795

== ENCOUNTER 2021-11-05 15:49 | Inpatient (IN) | payer MEDICARE, BC ==
[2021-11-05] MEDS ORDERED: Dextrose 5%-0.9% NaCl 1,000 ML IV SCH (16:30)
[2021-11-05] MEDS ORDERED: Metoclopramide 10 MG/2 ML SDV IVPUSH ONE (17:14)
[2021-11-05 17:26] LABS: CORONAVIRUS COVID-19 NAA POSITIVE (NEGATIVE)
[2021-11-05] MEDS ORDERED: Acetaminophen 325 MG Tab PO ONE (17:45)
[2021-11-05] MEDS ORDERED: Sodium Chloride 0.9% 10 ML Syringe FLUSH ONE (18:16)
[2021-11-05] MEDS ORDERED: Iopamidol 755 Mg/ML 100 ML Bottle IVPUSH ONE (18:16)
[2021-11-05] MEDS ORDERED: cefTRIAXone 2 GM in Sodium Chloride 0.9% 100 ML IV ONE (18:16)
[2021-11-05] MEDS ORDERED: Sodium Chloride 0.9% 100 ML IV SCH (18:30)
[2021-11-05] MEDS ORDERED: Dexamethasone 10 MG/ML SDV IVPUSH ONE (19:46)
[2021-11-05] MEDS ORDERED: Albuterol 0.083% 2.5 MG/3 ML Neb Soln NEB PRN (22:45)
[2021-11-06] MEDS: Dexamethasone 6 MG TABLET PO SCH (06:33)
[2021-11-06] MEDS ORDERED: Albuterol/Ipratropium 3.0-0.5 MG/3 ML Neb Soln NEB PRN (09:23)
[2021-11-06] MEDS ORDERED: ALPRAZolam 0.25 MG Tab PO PRN (09:24)
[2021-11-06] MEDS ORDERED: Acetaminophen 325 MG Tab PO PRN (09:25)
[2021-11-06] MEDS ORDERED: Polyethylene Glycol 3350 Powder 17 GM Packet PO PRN (09:25)
[2021-11-06] MEDS ORDERED: AMLODIPINE 2.5 MG PO SCH (09:30)
[2021-11-06] MEDS ORDERED: Ondansetron 4 MG/2 ML SDV IVPUSH PRN (09:30)
[2021-11-06] MEDS ORDERED: REMDESIVIR 200 MG in Sodium Chloride 0.9% 250 ML IV ONE (10:00)
[2021-11-06] MEDS: Famotidine 20 MG Tab PO SCH ×2 (10:03→21:43)
[2021-11-06] MEDS: Finasteride 5 MG Tab PO SCH ×2 (10:04→21:44)
[2021-11-06] MEDS: Clopidogrel 75 MG Tab PO SCH (10:04)
[2021-11-06] MEDS: Metoprolol Tartrate 25 MG Tab PO SCH ×2 (10:04→21:43)
[2021-11-06] MEDS: Isosorbide Mononitrate 30 MG Tab.ER PO SCH (10:07)
[2021-11-06] MEDS: Enoxaparin 40 MG/0.4 ML Syringe SUBCUT SCH (10:08)
[2021-11-06] MEDS: Zinc Sulfate 220 MG Cap PO SCH (13:55)
[2021-11-06] MEDS: Nicotine 14 MG/24 Hr Patch TRDERM SCH (15:43)
[2021-11-06] MEDS: Tamsulosin 0.4 MG Cap.ER PO SCH (21:43)
[2021-11-07] MEDS: cefTRIAXone 2 GM in Sodium Chloride 0.9% 100 ML IV SCH (07:43)
[2021-11-07] MEDS: Dexamethasone 6 MG TABLET PO SCH (07:43)
[2021-11-07] MEDS: Azithromycin 500 MG in Sodium Chloride 0.9% 250 ML IV SCH (08:51)
[2021-11-07] MEDS: Isosorbide Mononitrate 30 MG Tab.ER PO SCH (08:57)
[2021-11-07] MEDS: Zinc Sulfate 220 MG Cap PO SCH (08:57)
[2021-11-07] MEDS: Famotidine 20 MG Tab PO SCH ×2 (08:58→20:27)
[2021-11-07] MEDS: Finasteride 5 MG Tab PO SCH ×2 (08:58→20:27)
[2021-11-07] MEDS: Metoprolol Tartrate 25 MG Tab PO SCH ×2 (08:58→21:35)
[2021-11-07] MEDS: Clopidogrel 75 MG Tab PO SCH (08:58)
[2021-11-07] MEDS: Enoxaparin 40 MG/0.4 ML Syringe SUBCUT SCH (08:59)
[2021-11-07] MEDS ORDERED: REMDESIVIR 100 MG in Sodium Chloride 0.9% 100 ML IV SCH (10:00)
[2021-11-07] MEDS: Nicotine 14 MG/24 Hr Patch TRDERM SCH (15:48)
[2021-11-07] MEDS: Tamsulosin 0.4 MG Cap.ER PO SCH (20:27)
[2021-11-07] MEDS ORDERED: traZODone 50 MG Tab PO PRN (21:22)
[2021-11-08] MEDS: Dexamethasone 6 MG TABLET PO SCH (06:12)
[2021-11-08] MEDS: cefTRIAXone 2 GM in Sodium Chloride 0.9% 100 ML IV SCH (06:15)
[2021-11-08] MEDS: Azithromycin 500 MG in Sodium Chloride 0.9% 250 ML IV SCH ×2 (06:19→07:37)
[2021-11-08] MEDS: Famotidine 20 MG Tab PO SCH ×2 (09:35→20:13)
[2021-11-08] MEDS: Clopidogrel 75 MG Tab PO SCH (09:36)
[2021-11-08] MEDS: Potassium Chloride 20 MEQ Tab.ER PO SCH ×2 (09:36→20:14)
[2021-11-08] MEDS: Finasteride 5 MG Tab PO SCH (09:36)
[2021-11-08] MEDS: Isosorbide Mononitrate 30 MG Tab.ER PO SCH (09:37)
[2021-11-08] MEDS: Metoprolol Tartrate 25 MG Tab PO SCH ×2 (09:37→20:15)
[2021-11-08] MEDS: Zinc Sulfate 220 MG Cap PO SCH (09:37)
[2021-11-08] MEDS: Enoxaparin 40 MG/0.4 ML Syringe SUBCUT SCH (09:38)
[2021-11-08] MEDS: Nicotine 14 MG/24 Hr Patch TRDERM SCH (14:11)
[2021-11-08] MEDS: Tamsulosin 0.4 MG Cap.ER PO SCH (20:14)
[2021-11-09] MEDS: cefTRIAXone 2 GM in Sodium Chloride 0.9% 100 ML IV SCH ×2 (06:13→09:17)
[2021-11-09] MEDS: Azithromycin 500 MG in Sodium Chloride 0.9% 250 ML IV SCH ×2 (06:15→09:17)
[2021-11-09] MEDS: Dexamethasone 6 MG TABLET PO SCH (06:16)
[2021-11-09] MEDS ORDERED: Albuterol 6.7 GM Inhaler INH PRN (08:42)
[2021-11-09] MEDS: Famotidine 20 MG Tab PO SCH (09:17)
[2021-11-09] MEDS: Isosorbide Mononitrate 30 MG Tab.ER PO SCH (09:17)
[2021-11-09] MEDS: Clopidogrel 75 MG Tab PO SCH (09:18)
[2021-11-09] MEDS: Finasteride 5 MG Tab PO SCH (09:18)
[2021-11-09] MEDS: Zinc Sulfate 220 MG Cap PO SCH (09:18)
[2021-11-09] MEDS: Metoprolol Tartrate 25 MG Tab PO SCH (09:19)
[2021-11-09 09:23] VITALS: BP 142/87; PULSE 67
[2021-11-09] MEDS: Enoxaparin 40 MG/0.4 ML Syringe SUBCUT SCH (09:24)
== END 2021-11-09 10:28 | disposition home or self-care (01) | DRG 177 ==
LOC: JD.ED 15:49 → JD.MS 19:14
PROVIDERS: ADMIT Pediatrics; ATTEND Pediatrics
PROC: XW033E5 Introduction of Remdesivir Anti-infective into Peripheral Vein, Percutaneous Approach, New Technology Group 5 (ICD-10-PCS; principal; 2021-11-05)
PROC: 3E0DX3Z Introduction of Anti-inflammatory into Mouth and Pharynx, External Approach (ICD-10-PCS; principal; 2021-11-05)
PROC: 8E0ZXY6 Isolation (ICD-10-PCS; principal; 2021-11-05)
DX: U07.1 COVID-19 (principal); J12.82 Pneumonia due to coronavirus disease 2019; R06.02 Shortness of breath; J96.01 Acute respiratory failure with hypoxia; J44.0 Chronic obstructive pulmonary disease with (acute) lower respiratory infection; I25.10 Atherosclerotic heart disease of native coronary artery without angina pectoris; H91.93 Unspecified hearing loss, bilateral; E78.00 Pure hypercholesterolemia, unspecified; I10 Essential (primary) hypertension; I49.3 Ventricular premature depolarization; K44.9 Diaphragmatic hernia without obstruction or gangrene; E78.5 Hyperlipidemia, unspecified; N40.0 Benign prostatic hyperplasia without lower urinary tract symptoms; H54.7 Unspecified visual loss; M19.90 Unspecified osteoarthritis, unspecified site; F41.9 Anxiety disorder, unspecified; Z86.010 Personal history of colon polyps; Z87.891 Personal history of nicotine dependence; I25.2 Old myocardial infarction; Z95.5 Presence of coronary angioplasty implant and graft; Z87.01 Personal history of pneumonia (recurrent); Z91.018 Allergy to other foods; Z79.899 Other long term (current) drug therapy; Z79.02 Long term (current) use of antithrombotics/antiplatelets; Z86.19 Personal history of other infectious and parasitic diseases; Z90.49 Acquired absence of other specified parts of digestive tract; Z98.49 Cataract extraction status, unspecified eye; Z98.890 Other specified postprocedural states; R93.89 Abnormal findings on diagnostic imaging of other specified body structures; K57.90 Diverticulosis of intestine, part unspecified, without perforation or abscess without bleeding; Z20.822 Contact with and (suspected) exposure to COVID-19
CPT/HCPCS: 0241U; 36415; 36600; 71045; 71275; 80053; 81001; 82306; 82553; 82803; 83605; 83735; 83880; 84145; 84484; 85025; 85379; 85610; 85730; 86140; 87040; 93005; 94640; 94668; 94762; 96365; 96375; 97161; 99285; A9270-GY; J0456; J0696; J1100; J1650; J2765; J3490; J7042; J7050; J8540; Q9967

== ENCOUNTER 2021-12-11 07:08 | Day surgery (SDC) | payer MEDICARE, BC ==
[~2021-12-11 07:08] MED LIST changes: -Albuterol 0.083% 2.5 MG/3 ML Neb Soln NEB SCH; -Lactated Ringers 0 ML ONE; -Lactated Ringers 1,000 ML IV SCH; -Morphine 8 MG, EPINEPHrine 0.3 MG, Cefuroxime 750 MG, Ketorolac 30 MG, Sodium Chloride ... PRN; -Propofol 200 MG/20 ML SDV ONE; -Vancomycin 1 GM SDV ONE; -ceFAZolin 1 GM Vial ONE; -fentaNYL 100 MCG/2 ML SDV ONE
[2021-12-11] MEDS: Lactated Ringers 1,000 ML IV SCH ×2 (07:15→10:57)
[2021-12-11] MEDS ORDERED: Midazolam 1 MG/ML 2 ML SDV ONE (07:28)
[2021-12-11] MEDS ORDERED: fentaNYL 100 MCG/2 ML SDV ONE (07:28)
[2021-12-11] MEDS ORDERED: Lidocaine 1% 4 ML ONE (07:28)
[2021-12-11] MEDS ORDERED: Propofol 200 MG/20 ML SDV ONE (07:28)
[2021-12-11] MEDS ORDERED: ceFAZolin 1 GM Vial ONE (07:31)
[2021-12-11] MEDS ORDERED: EPINEPHrine 1 MG/ML SDV ONE (08:00)
[2021-12-11] MEDS ORDERED: Ropivacaine 0.5% 5 MG/ML 30 ML SDV ONE (08:00)
[2021-12-11] MEDS ORDERED: Ondansetron 4 MG/2 ML SDV IVPUSH PRN (08:27)
[2021-12-11] MEDS ORDERED: HYDROmorphone 0.5 MG/0.5 ML Syringe IVPUSH PRN (08:27)
[2021-12-11] MEDS ORDERED: fentaNYL 100 MCG/2 ML SDV IVPUSH PRN (08:27)
[2021-12-11] MEDS ORDERED: ePHEDrine 50 MG/ML SDV ONE (08:35)
[2021-12-11] MEDS: Vancomycin 1 GM SDV ONE ×2 (08:57→09:42)
[2021-12-11] MEDS: Morphine 8 MG, EPINEPHrine 0.3 MG, Cefuroxime 750 MG, Ketorolac 30 MG, Sodium Chloride ... PRN ×10 (08:58→09:35)
[2021-12-11] MEDS ORDERED: Ketorolac 15 MG/ML SDV ONE (09:43)
[2021-12-11] MEDS ORDERED: Ondansetron 4 MG/2 ML SDV ONE (09:43)
[2021-12-11] MEDS ORDERED: Lactated Ringers 1,000 ML ONE (09:48)
[2021-12-11] MEDS ORDERED: oxyCODONE 5 MG Tab PO PRN (10:29)
[2021-12-11 16:38] VITALS: BP 146/78; PULSE 58
== END 2021-12-11 13:10 | disposition home or self-care (01) ==
LOC: JD.SDS 07:08
PROVIDERS: ATTEND Orthopaedic Surgery
DX: M17.11 Unilateral primary osteoarthritis, right knee (principal); J44.9 Chronic obstructive pulmonary disease, unspecified; I25.10 Atherosclerotic heart disease of native coronary artery without angina pectoris; F17.210 Nicotine dependence, cigarettes, uncomplicated; E78.5 Hyperlipidemia, unspecified; I10 Essential (primary) hypertension; E78.00 Pure hypercholesterolemia, unspecified; H54.7 Unspecified visual loss; N40.0 Benign prostatic hyperplasia without lower urinary tract symptoms; F41.9 Anxiety disorder, unspecified; Z88.8 Allergy status to other drugs, medicaments and biological substances; Z91.018 Allergy to other foods; Z98.890 Other specified postprocedural states; Z95.5 Presence of coronary angioplasty implant and graft; Z79.899 Other long term (current) drug therapy; Z79.51 Long term (current) use of inhaled steroids
CPT/HCPCS: 0055T; 27447; 73560; 97110; 97116; 97161; A9270; C1713; C1776; J0171; J0690; J0697; J1885; J2250; J2270; J2405; J2704; J2795; J3010; J3370; J7120; 01402; 64447; 76942

== ENCOUNTER 2023-12-20 21:13 | Emergency (ER) | payer MEDICARE ==
[2023-12-20] MEDS: Metoclopramide 10 MG/2 ML SDV IVPUSH ONE (21:57)
[2023-12-20] MEDS: Dextrose 5%-0.9% NaCl 1,000 ML IV SCH (21:58)
[2023-12-20] MEDS: HYDROmorphone 0.5 MG/0.5 ML Syringe IVPUSH ONE (21:58)
[2023-12-20 22:04] LABS: BASOPHILS PERCENT AUTO 0.5 % (0.0-1.0); EOSINOPHILS ABSOLUTE AUTO 0.1 K/mm3 (0.0-0.4); EOSINOPHILS PERCENT AUTO 1.5 % (0.0-6.0); HEMATOCRIT 39.5 % (42.0-52.0); IMMATURE GRAN ABSOLUTE AUTO 0.02 K/mm3 (0.00-0.05); IMMATURE GRAN PERCENT AUTO 0.4 % (0.0-0.4); LYMPHOCYTES ABSOLUTE AUTO 0.7 K/mm3 (1.0-4.8); MEAN CORPUSCULAR HEMOGLOBIN 31.1 pg (28.0-32.0); MEAN CORPUSCULAR HGB CONC 32.9 g/dl (32.0-36.0); MEAN CORPUSCULAR VOLUME 94.5 fl (83.0-99.0); MEAN PLATELET VOLUME 8.4 fl (9.4-12.4); MONOCYTES ABSOLUTE AUTO 0.5 K/mm3 (0.0-0.8); MONOCYTES PERCENT AUTO 8.8 % (0.0-8.0); NEUTROPHILS ABSOLUTE AUTO 4.1 K/mm3 (1.8-7.7); NEUTROPHILS PERCENT AUTO 75.8 % (41.0-71.0); PLATELET COUNT,PLT 137 K/mm3 (150-400); RED BLOOD CELL COUNT 4.18 M/mm3 (4.52-5.90); WHITE BLOOD CELL COUNT,WBC 5.46 K/mm3 (3.9-11.3)
[2023-12-20 22:26] LABS: LACTIC ACID 0.4 mmol/L (0.4-2.0)
[2023-12-20 22:35] LABS: A/G RATIO 1.1 (1-2); ALBUMIN 3.6 g/dl (3.4-5.0); ANION GAP 12.6 (5-15); BILIRUBIN TOTAL 0.3 mg/dL (0.2-1.0); BUN/CREATININE RATIO 12.9 (14-18); C-REACTIVE PROTEIN 0.31 mg/dL (<0.30); CALCIUM 8.4 mg/dL (8.5-10.1); CREATININE 0.7 mg/dL (0.7-1.3); EST CRCL DRUG DOSING (CG) 83.39 mL/min; POTASSIUM,K 3.6 mEq/L (3.5-5.1); PROTEIN TOTAL,TP 6.9 g/dl (6.4-8.2)
[2023-12-20] MEDS: Magnesium Citrate Solution 296 ML Bottle PO ONE (22:47)
[2023-12-20 23:49] VITALS: BP 166/73; PULSE 64
== END 2023-12-20 23:11 | disposition home or self-care (01) ==
LOC: JD.ED 21:13
DX: K59.01 Slow transit constipation (principal); I10 Essential (primary) hypertension; C34.12 Malignant neoplasm of upper lobe, left bronchus or lung; C78.7 Secondary malignant neoplasm of liver and intrahepatic bile duct; C79.31 Secondary malignant neoplasm of brain; C79.51 Secondary malignant neoplasm of bone; I25.10 Atherosclerotic heart disease of native coronary artery without angina pectoris; J44.9 Chronic obstructive pulmonary disease, unspecified; E78.00 Pure hypercholesterolemia, unspecified; Z88.8 Allergy status to other drugs, medicaments and biological substances; Z91.018 Allergy to other foods; Z79.899 Other long term (current) drug therapy; Z90.49 Acquired absence of other specified parts of digestive tract
CPT/HCPCS: 36415; 74018; 80053; 83605; 83690; 83735; 83880; 85025; 86140; 96361; 96374; 96375; 99284; A9270; J1170; J2765; J7042

== ENCOUNTER 2024-08-12 17:57 | Emergency (ER) | payer MEDICARE ==
[2024-08-12 18:10] VITALS: BP 187/84; PULSE 112
[2024-08-12] MEDS: Magnesium Citrate Solution 296 ML Bottle PO ONE (22:13)
== END 2024-08-12 23:50 | disposition home or self-care (01) ==
LOC: JD.ED 17:57
DX: K59.00 Constipation, unspecified (principal); J44.9 Chronic obstructive pulmonary disease, unspecified; E11.9 Type 2 diabetes mellitus without complications; I10 Essential (primary) hypertension; E78.00 Pure hypercholesterolemia, unspecified; I25.10 Atherosclerotic heart disease of native coronary artery without angina pectoris; Z91.048 Other nonmedicinal substance allergy status; Z79.899 Other long term (current) drug therapy; Z79.02 Long term (current) use of antithrombotics/antiplatelets; Z95.5 Presence of coronary angioplasty implant and graft
CPT/HCPCS: 99283; A9270-GY

== ENCOUNTER 2025-01-09 13:27 | Emergency (ER) | payer MEDICARE ==
[2025-01-09 13:43] VITALS: BP 129/72; PULSE 79
[2025-01-09] MEDS ORDERED: Magnesium Citrate Solution 296 ML Bottle PO ONE (17:53)
== END 2025-01-09 18:18 | disposition home or self-care (01) ==
LOC: JD.ED 13:27
DX: K59.01 Slow transit constipation (principal); I25.10 Atherosclerotic heart disease of native coronary artery without angina pectoris; E78.00 Pure hypercholesterolemia, unspecified; I10 Essential (primary) hypertension; J44.9 Chronic obstructive pulmonary disease, unspecified; E11.9 Type 2 diabetes mellitus without complications; F17.200 Nicotine dependence, unspecified, uncomplicated; Z90.49 Acquired absence of other specified parts of digestive tract; Z88.8 Allergy status to other drugs, medicaments and biological substances; Z91.018 Allergy to other foods; Z79.899 Other long term (current) drug therapy
CPT/HCPCS: 74019; 74019-26; 99283; 99284